=== PATIENT | female | born 1940 | race Caucasian/White ===

== ENCOUNTER 2016-02-07 14:23 | Inpatient (IN) ==
--- NOTE | 2016-02-07 14:36 | Emergency Department Note ---
Disposition Clinical Impression: Acute exacerbation of chronic obstructive airways disease Congestive heart failure Qualifiers: Congestive heart failure type: unspecified congestive heart failure type Congestive heart failure chronicity: acute Qualified Code(s): I50.9 - Heart failure, unspecified Disposition: Admitted As Inpatient Condition: Fair Referrals: Valerie Hayes MD [Primary Care Provider] - Forms: ED Satisfaction Letter Time of Disposition: 16:53 SOB HPI - General Chief Complaint: ED Shortness of Breath/Dyspnea Stated Complaint: SOB Time Seen by Provider: 02/07/16 14:31 Source: patient, EMS Mode of arrival: EMS Limitations: physical limitation Nursing Notes Reviewed: Yes Vital Signs Reviewed: Yes - History of Present Illness 75-year-old with a history of COPD comes in with increasing shortness of breath and cough. She saw her family doctor who did not want to put her on antibiotics she cannot take steroids. Pt Subjective Complaint: shortness of breath Onset (ago): hour(s) Context: recent illness Severity: moderate Consistency/Duration: constant Improves with: nothing Worsens with: exertion Known history of: COPD Associated symptoms: Reports: cough, wheezing, sputum production Treatment prior to arrival: oxygen, bronchodilator Cough present: No Cough Description: Involuntary Cough Frequency: Intermittent - Related Data Home Medications Medication Instructions Recorded Confirmed Aspirin Enteric Coated [Aspirin EC] 81 mg PO DAILY 01/11/15 09/12/15 Calcium Carbonate/Vitamin D3 1 each PO DAILY 01/11/15 09/12/15 [Calcium 600-Vit D3 800 Tablet] Clopidogrel [Plavix] 75 mg PO DAILY 01/11/15 09/12/15 Furosemide [Lasix] 20 mg PO QAM 01/11/15 09/12/15 HydrALAZINE 50 mg PO BID 01/11/15 09/12/15 Levalbuterol Neb [Xopenex Neb] 1.25 mg IH Q4HR 01/11/15 09/12/15 Loratadine [Claritin] 10 mg PO DAILY 01/11/15 09/12/15 Losartan [Cozaar] 50 mg PO DAILY 01/11/15 09/12/15 Multivitamin [Multi-Day Vitamins] 1 each PO DAILY 01/11/15 09/12/15 Nitroglycerin [Nitrostat] 0.4 mg SL AD PRN 01/11/15 09/12/15 Pravastatin Sodium [Pravachol] 40 mg PO DAILY 01/11/15 09/12/15 Sotalol [Betapace] 80 mg PO Q12HR 01/11/15 09/12/15 Fluticasone Propionate Nasal 50 mcg NS DAILY 09/12/15 09/12/15 [Flonase] LORazepam [Ativan] 0.5 mg PO BID 09/12/15 09/12/15 Metoprolol XL (24 HR) Succ [Toprol 50 mg PO DAILY 09/12/15 09/12/15 Xl] Oxygen 2 l NS AD 09/12/15 09/12/15 Previous Rx's Medication Instructions Recorded GuaiFENesin ER [Mucinex] 600 mg PO BID PRN #20 tbbp.12hr 09/15/15 HYDROcodone/Acet 5/325 mg [[place] 1 tab PO Q6HR PRN #15 tablet 12/09/15 5-325 mg] Cefdinir [Omnicef] 300 mg PO BID 10 Days 02/05/16 Allergies Allergy/AdvReac Type Severity Reaction Status Date / Time ASIM Inhibitors Allergy See Verified 09/12/15 18:41 Comments budesonide [From Symbicort] Allergy Swelling Verified 09/12/15 18:41 of Lip/Tongue/Throat Cyclobenzaprine Allergy Anaphylaxis Verified 09/12/15 18:41 [From Flexeril] ethacrynic acid Allergy See Verified 09/12/15 18:41 [From Edecrin] Comments lisinopril [From Zestoretic] Allergy See Verified 09/12/15 18:41 Comments moxifloxacin [From Avelox] Allergy See Verified 09/12/15 18:41 Comments amlodipine [From Norvasc] AdvReac Diarrhea Verified 09/12/15 18:41 aspirin AdvReac See Verified 09/12/15 18:41 Comments azithromycin [From Zithromax] AdvReac Diarrhea Verified 09/12/15 18:41 citalopram [From Celexa] AdvReac See Verified 09/12/15 18:41 Comments fluticasone AdvReac Confusion Verified 09/12/15 18:41 [From Advair Diskus] Formoterol [From Dulera] AdvReac Muscle Pain Verified 09/12/15 18:41 gabapentin [From Neurontin] AdvReac Headache Verified 09/12/15 18:41 hydrochlorothiazide AdvReac See Verified 09/12/15 18:41 Comments levofloxacin [From Levaquin] AdvReac See Verified 09/12/15 18:41 Comments losartan [Losartan] AdvReac Diarrhea Verified 09/12/15 18:41 mometasone furoate AdvReac Muscle Pain Verified 09/12/15 18:41 [From Dulera] ofloxacin AdvReac Headache Verified 09/12/15 18:41 prednisone AdvReac See Verified 09/12/15 18:41 Comments rofecoxib [From Vioxx] AdvReac Nausea Verified 09/12/15 18:41 salmeterol AdvReac Confusion Verified 09/12/15 18:41 [From Advair Diskus] Serotonin 5HT-3 Antagonists AdvReac See Verified 09/12/15 18:41 Comments Sulfa (Sulfonamide AdvReac Nausea Verified 09/12/15 18:41 Antibiotics) tiotropium AdvReac See Verified 09/12/15 18:41 [From Spiriva with Comments HandiHaler] tramadol AdvReac See Verified 09/12/15 18:41 Comments Constitutional: Denies: fever, chills, weakness, weight change Eyes: Denies: eye pain, eye discharge, vision change ENT ED: Denies: ear pain, throat pain, dental pain, hearing loss, epistaxis, congestion, dysphagia Cardiovascular: Denies: chest pain, palpitations, dyspnea on exertion, edema, syncope Respiratory: Reports: cough. Denies: dyspnea, wheezes, hemoptysis, stridor Gastrointestinal: Denies: abdominal pain, nausea, vomiting, diarrhea, constipation, hematemesis, melena, hematochezia Genitourinary: Denies: dysuria, frequency, hematuria, discharge Musculoskeletal: Denies: back pain, neck pain, arthralgia, myalgia Integumentary: Denies: rash, abrasion, lesions Neurological: Denies: headache, weakness, numbness, paresthesias, confusion, abnormal gait, vertigo Psychiatric: Denies: anxiety, depression, suicidal thoughts, homicidal thoughts , auditory hallucinations, visual hallucinations Endocrine: Denies: fatigue Hematological/Lymphatic: Denies: easy bleeding, easy bruising Allergic/Immunologic: Denies: facial swelling, urticaria Past Medical History - Past Medical History Medical history: Reports: CHF, COPD, diabetes, hyperlipidemia, hypertension, myocardial infarction Surgical history: Reports: angioplasty/stent Psychiatric history: Reports: anxiety GEOPHYSICS SCIENTIST history: Reports: no GEOPHYSICS SCIENTIST history - Social History Smoking Status: Former smoker Smokeless Tobacco Status: No Alcohol use: Reports: none Drug use: Reports: none Physical Exam - General Limitations: physical limitation General appearance: alert, in no apparent distress - Head Head exam: atraumatic, normocephalic, normal inspection - Eye Eye exam: Present: normal appearance, PERRL, EOMI - ENT ENT exam: normal exam, normal oropharynx, mucous membranes moist - Neck Neck exam: Present: normal inspection, full ROM, trachea midline - Chest Chest inspection: Present: normal inspection, symmetric chest wall rise - Respiratory Respiratory exam: Present: respiratory distress, wheezes, accessory muscle use, prolonged expiratory phase - Cardiovascular Cardiovascular exam: Present: regular rate, normal rhythm, normal heart sounds - Abdominal Exam Abdominal exam: Present: soft, Non-Tender. Absent: tenderness, distention, guarding, rebound, rigidity - Extremities Exam Extremities exam: Present: normal inspection, full ROM. Absent: tenderness, pedal edema - Expanded Lower Extremity Exam Neurovascular/Tendon exam: Absent: motor deficit, sensory deficit, tendon deficit Gait: observed and normal - Back Exam Back exam: Present: normal inspection, full ROM. Absent: tenderness - Neurological Exam Neurological exam: Present: alert, oriented X3 - Psychiatric Psychiatric exam: Present: normal affect, normal mood - Skin Skin exam: Present: warm, dry, intact, normal color Course - Reevaluation(s) Reevaluation #1: She comes in with increasing shortness of breath and wheezing. Patient does have a history of COPD. She denies fever. Chest x-ray was read as possible pneumonitis however her BNP is elevated and it does look congested. Time: 16:53 - Consultations Consultation #1: Discussed with , admit. Time: 16:53 Vital Signs Temperature 97.5 F L 02/07/16 14:31 Pulse Rate 76 02/07/16 14:31 Respiratory Rate 15 02/07/16 14:31 Blood Pressure 164/73 02/07/16 14:31 O2 Sat by Pulse Oximetry 96 02/07/16 14:31 Temperature 97.5 F L 02/07/16 14:31 Pulse Rate 77 02/07/16 14:34 Respiratory Rate 14 02/07/16 14:34 Blood Pressure 164/73 02/07/16 14:34 O2 Sat by Pulse Oximetry 97 02/07/16 14:34 Oxygen Delivery Oxygen Delivery Nasal Cannula Shortness of Breath/Dyspnea - Lab Data Lab results reviewed: Yes I reviewed the patient's lab results. Result diagrams: 02/07/16 14:49 02/07/16 14:49 Lab Results 02/07/16 02/07/16 02/07/16 Range/Units 14:49 14:49 14:49 WBC 7.1 (4.3-11.1) K/mcL RBC 3.32 L (3.82-4.97) M/mcL Hgb 10.7 L (11.5-15.4) g/dL Hct 31.7 L (35.3-44.9) % MCV 95.5 (83.0-100.0) fL MCH 32.2 (28.0-33.3) pg MCHC 33.8 (31.6-35.5) g/dL RDW 11.7 (11.5-14.5) % Plt Count 165 (140-400) K/mcL MPV 9.7 (9.4-12.4) fL Immature Gran % 0.6 (0-4) % Seg Neutrophils % 81.9 % Lymphocytes % 9.6 % Monocytes % 7.7 % Eosinophils % 0.1 % Basophils % 0.1 % Neutrophils # 5.8 (1.6-8.9) K/mcL Lymphocytes # 0.7 (0.6-4.6) K/mcL Monocytes # 0.6 (0.0-1.3) K/mcL Eosinophils # 0.0 (0.0-0.6) K/mcL Basophils # 0.0 (0.0-0.2) K/mcL Sodium 123 L D (136-145) mEq/L Potassium 4.5 (3.5-4.5) mEq/L Chloride 86 L (98-109) mEq/L Carbon Dioxide 31 H (19-29) mEq/L BUN 13 (7-20) mg/dL Creatinine 0.63 (0.57-1.11) mg/dL Est GFR ( Amer) > 60 (> 60) Est GFR (Non-Af Amer) > 60 (> 60) BUN/Creatinine Ratio 21 (6-26) Glucose 143 H (70-99) mg/dL Calculated Osmolality 259 L (280-300) Calcium 9.4 (8.6-10.8) mg/dL Troponin I 0.02 (0-0.03) ng/mL B-Natriuretic Peptide (0-100) pg/mL 02/07/16 Range/Units 14:49 WBC (4.3-11.1) K/mcL RBC (3.82-4.97) M/mcL Hgb (11.5-15.4) g/dL Hct (35.3-44.9) % MCV (83.0-100.0) fL MCH (28.0-33.3) pg MCHC (31.6-35.5) g/dL RDW (11.5-14.5) % Plt Count (140-400) K/mcL MPV (9.4-12.4) fL Immature Gran % (0-4) % Seg Neutrophils % % Lymphocytes % % Monocytes % % Eosinophils % % Basophils % % Neutrophils # (1.6-8.9) K/mcL Lymphocytes # (0.6-4.6) K/mcL Monocytes # (0.0-1.3) K/mcL Eosinophils # (0.0-0.6) K/mcL Basophils # (0.0-0.2) K/mcL Sodium (136-145) mEq/L Potassium (3.5-4.5) mEq/L Chloride (98-109) mEq/L Carbon Dioxide (19-29) mEq/L BUN (7-20) mg/dL Creatinine (0.57-1.11) mg/dL Est GFR ( Amer) (> 60) Est GFR (Non-Af Amer) (> 60) BUN/Creatinine Ratio (6-26) Glucose (70-99) mg/dL Calculated Osmolality (280-300) Calcium (8.6-10.8) mg/dL Troponin I (0-0.03) ng/mL B-Natriuretic Peptide 1323 H (0-100) pg/mL - Radiology Data Radiology results reviewed: Yes I reviewed the patient's radiology results. Chest X-Ray 02/07/16 14:32 IMPRESSION: Mild progressive increase in the perihilar markings bilaterally suggesting a pneumonitis. D/ / Javan Card MD / Javan Card MD Interpreting Provider: Javan Card MD - EKG Data EKG attestation: Yes I reviewed and interpreted this EKG. EKG shows normal: Reports: sinus rhythm Rate: Reports: normal Rhythm: Reports: NSR [place]/QRS: Reports: IVCD When compared to previous EKG there are: no significant changes (02/05/2016) Interpretation: Reports: no acute changes
[2016-02-07 15:03] LABS: Basophils % 0.1 %; Eosinophils % 0.1 %; Hematocrit 31.7 % (35.3-44.9); Hemoglobin 10.7 g/dL (11.5-15.4); Immature Granulocytes % 0.6 % (0-4); Lymphocytes # 0.7 K/mcL (0.6-4.6); Lymphocytes % 9.6 %; Mean Corpuscular HGB Conc 33.8 g/dL (31.6-35.5); Mean Corpuscular Hemoglobin 32.2 pg (28.0-33.3); Mean Corpuscular Volume 95.5 fL (83.0-100.0); Mean Platelet Volume 9.7 fL (9.4-12.4); Monocytes # 0.6 K/mcL (0.0-1.3); Monocytes % 7.7 %; Neutrophils # 5.8 K/mcL (1.6-8.9); Platelet Count 165 K/mcL (140-400); Red Blood Count 3.32 M/mcL (3.82-4.97); Red Cell Distribution Width 11.7 % (11.5-14.5); Segmented Neutrophils % 81.9 %
[2016-02-07 15:12] LABS: BUN/Creatinine Ratio 21 (6-26); Blood Urea Nitrogen 13 mg/dL (7-20); Calcium 9.4 mg/dL (8.6-10.8); Carbon Dioxide 31 mEq/L (19-29); Chloride 86 mEq/L (98-109); Glucose 143 mg/dL (70-99); Osmolality,Calculated 259 (280-300); Potassium 4.5 mEq/L (3.5-4.5); Sodium 123 mEq/L (136-145); eGFR For African Americans > 60 (> 60); eGFR For Non-African Americans > 60 (> 60)
[2016-02-07] MEDS ORDERED: Furosemide 40 MG/4 ML VIAL IVP ONE (16:28)
[2016-02-07] MEDS ORDERED: Naloxone 0.4 MG/ML INJ IVP PRN (17:45)
[2016-02-07] MEDS ORDERED: Ondansetron ODT 4 MG TAB.RAPDIS SL PRN (17:45)
[2016-02-07] MEDS ORDERED: D5% in Water 1,000 ML IV PRN (17:49)
[2016-02-07] MEDS ORDERED: *HR* Dextrose 50 % in Water (Syg) 50 ML SYRINGE IVP PRN (17:49)
[2016-02-07] MEDS ORDERED: Dextrose Gel 15 GM PO PRN ×2 (17:49)
--- NOTE | 2016-02-07 18:08 | Internal Med History&Physical ---
Date of Encounter: 02/07/16 Time of Encounter: 18:02 Assessment and Plan (1) Acute on chronic congestive heart failure Current visit: Yes Status: Acute Patient presented with worsening shortness of breath and cough. BNP 1323 and sodium of 123 suggesting fluid overload No echocardiogram on review of recent chart Lasix 40mg IVP daily titrate O2 for O2 sat > 92% Qualifiers: Congestive heart failure type: unspecified congestive heart failure type Qualified Code(s): I50.9 - Heart failure, unspecified (2) Acute exacerbation of chronic obstructive airways disease Current visit: Yes Status: Acute Patient presented with worsening SOB and productive cough. She was prescribed omnicef in ED 2 days ago for similar symptoms. She reports allergy to steroids and albuterol, but takes Xopenex (levalbuterol) Q4hr, atrovent nebulizer and formoterol. Will continue her Xopenex, formoterol (use home meds) and atrovent nebulizers. Ceftriaxone initiated in ED. Titrate O2 to O2 sat > 92% (3) Hypertension Current visit: No Status: Chronic continue home doses of metoprolol and losartan Qualifiers: Hypertension type: essential hypertension Qualified Code(s): I10 - Essential (primary) hypertension (4) Hyponatremia Current visit: No Status: Chronic Lasix 40mg BID fluid restriction to 1500mL daily (5) Type 2 diabetes mellitus Current visit: Yes Status: Acute Diet controlled at home. Diabetic diet. blood glucose ACHS correction dose sliding scale insulin ordered hypoglycemic protocol ordered. Qualifiers: Diabetes mellitus complication status: with circulatory complication Diabetes mellitus complication detail: with other circulatory complications Diabetes mellitus buttermaker continuous churn insulin use: without mcfp use Qualified Code( s): E11.59 - Type 2 diabetes mellitus with other circulatory complications (6) DVT prophylaxis Current visit: No Status: Acute anti-embolic stockings ambulate with assistance and up to chair BID 5,000u of heparin SQ bid Internal Medicine - H&P: HPI Admitted From: Home Plans for Post Hospital Care: Home History of present illness: Ms. Jurado is a 75 year old female with history of COPD, CHF, HTN, ID, type 2 DM, who presented to the ED with shortness of breath and productive cough. She reports this has been going on for a week and worsening with cough productive of green and yellow sputum. She came to the ED 2 days ago with similar complaints and was given an antbiotic prescription, and reports she only started taking it last evening, and her SOB is worse. She has pain with coughing as well as a headache on and off. She reports chills and hot flashes, but denies fever, body aches, nausea, vomiting, abdominal pain. She has a history of COPD and wears 2L oxygen [place] at home. Her work up in the ED was significant for hyponatremia with sodium of 123, BNP of 1323. CXR showed mild progressive increase in the perihilar markings bilaterally suggesting pneumonitis. On exam, she was alert and oriented, appeared comfortable, satting 96% on 2L NC. Lungs with fine expiratory crackles bilaterally, Heart had regular rate and rhythm. Past Med Surg Social Fam HX - Past Medical History Medical history: CHF, COPD, diabetes, hyperlipidemia, hypertension, myocardial infarction Psychiatric history: anxiety - Past Surgical History Surgical History: angioplasty/stent (right external iliac), appendectomy, hysterectomy - Social History Smoking Status: Former smoker Smokeless Tobacco Status: No Alcohol use: none Drug use: none - Family History Mother Living Status: Cause of : CAD Hx Family Cardiac Disorders: Yes Hx Family Respiratory Disorders: Yes Father Cause of : meningitis Internal Medicine - H&P: Meds Aspirin Enteric Coated [Aspirin EC] 81 mg PO DAILY 01/11/15 [History] Calcium Carbonate/Vitamin D3 [Calcium 600-Vit D3 800 Tablet] 1 each PO DAILY 02/25 [History] Clopidogrel [Plavix] 75 mg PO DAILY 01/11/15 [History] Furosemide [Lasix] 20 mg PO QAM 01/11/15 [History] HydrALAZINE 50 mg PO BID 01/11/15 [History] Levalbuterol Neb [Xopenex Neb] 1.25 mg IH Q4HR 01/11/15 [History] Loratadine [Claritin] 10 mg PO DAILY 01/11/15 [History] Losartan [Cozaar] 50 mg PO DAILY 01/11/15 [History] Multivitamin [Multi-Day Vitamins] 1 each PO DAILY 01/11/15 [History] Nitroglycerin [Nitrostat] 0.4 mg SL AD PRN 01/11/15 [History] Pravastatin Sodium [Pravachol] 40 mg PO DAILY 01/11/15 [History] Sotalol [Betapace] 80 mg PO Q12HR 01/11/15 [History] Fluticasone Propionate Nasal [Flonase] 50 mcg NS DAILY 09/12/15 [History] LORazepam [Ativan] 0.5 mg PO BID 09/12/15 [History] Metoprolol XL (24 HR) Succ [Toprol Xl] 50 mg PO DAILY 09/12/15 [History] Oxygen 2 l NS CONT 09/12/15 [History] GuaiFENesin ER [Mucinex] 600 mg PO BID PRN #20 tbbp.12hr 09/15/15 [Rx] HYDROcodone/Acet 5/325 mg [[place] 5-325 mg] 1 tab PO Q6HR PRN #15 tablet [Rx] Cefdinir [Omnicef] 300 mg PO BID 10 Days 02/05/16 [Rx] Formoterol Fumarate [Perforomist] 20 mcg IH Q4H 02/07/16 [History] Ipratropium Neb [Atrovent Neb] 0.5 mg IH Q4H 02/07/16 [History] Tizanidine HCl [Tizanidine HCl] 2 mg PO TID PRN 02/07/16 [History] Allergies ASIM Inhibitors Allergy (Verified 09/12/15 18:41) See Comments budesonide [From Symbicort] Allergy (Verified 09/12/15 18:41) Swelling of Lip/Tongue/Throat Cyclobenzaprine [From Flexeril] Allergy (Verified 09/12/15 18:41) Anaphylaxis ethacrynic acid [From Edecrin] Allergy (Verified 09/12/15 18:41) See Comments lisinopril [From Zestoretic] Allergy (Verified 09/12/15 18:41) See Comments moxifloxacin [From Avelox] Allergy (Verified 09/12/15 18:41) See Comments amlodipine [From Norvasc] Adverse Reaction (Verified 09/12/15 18:41) Diarrhea aspirin Adverse Reaction (Verified 09/12/15 18:41) See Comments azithromycin [From Zithromax] Adverse Reaction (Verified 09/12/15 18:41) Diarrhea citalopram [From Celexa] Adverse Reaction (Verified 09/12/15 18:41) See Comments fluticasone [From Advair Diskus] Adverse Reaction (Verified 09/12/15 18:41) Confusion Formoterol [From Dulera] Adverse Reaction (Verified 09/12/15 18:41) Muscle Pain gabapentin [From Neurontin] Adverse Reaction (Verified 09/12/15 18:41) Headache hydrochlorothiazide Adverse Reaction (Verified 09/12/15 18:41) See Comments levofloxacin [From Levaquin] Adverse Reaction (Verified 09/12/15 18:41) See Comments losartan [Losartan] Adverse Reaction (Verified 09/12/15 18:41) Diarrhea mometasone furoate [From Dulera] Adverse Reaction (Verified 09/12/15 18:41) Muscle Pain ofloxacin Adverse Reaction (Verified 09/12/15 18:41) Headache prednisone Adverse Reaction (Verified 09/12/15 18:41) See Comments rofecoxib [From Vioxx] Adverse Reaction (Verified 09/12/15 18:41) Nausea salmeterol [From Advair Diskus] Adverse Reaction (Verified 09/12/15 18:41) Confusion Serotonin 5HT-3 Antagonists Adverse Reaction (Verified 09/12/15 18:41) See Comments Sulfa (Sulfonamide Antibiotics) Adverse Reaction (Verified 09/12/15 18:41) Nausea tiotropium [From Spiriva with HandiHaler] Adverse Reaction (Verified 09/12/15 18 :41) See Comments tramadol Adverse Reaction (Verified 09/12/15 18:41) See Comments All Systems PM: A 10-system review of systems was performed and is negative for pertinent findings except as documented above in the HPI. - Constitutional Constitutional: chills, no fever(s), no night sweats - EENT Eyes: no change in vision, no discharge, no pain, no photophobia - Cardiovascular Cardiovascular ROS IM: dyspnea, no chest pain, no diaphoresis, no lightheadedness, no palpitations, no syncope - Respiratory Respiratory: cough, dyspnea, excessive phlegm production, change in phlegm color , pain with cough, no wheezing - Gastrointestinal Gastrointestinal: no abdominal pain, no diarrhea, no hematemesis, no hematochezia, no melena, no nausea, no vomiting - Genitourinary Genitourinary: no change in urinary stream, no dysuria, no flank pain, no hematuria - Musculoskeletal Musculoskeletal ROS IM: no numbness, no tingling - Integumentary Integumentary IM: no rash, no unusual bruising - Neurological Neurological ROS: no confusion, no convulsions, no focal weakness, no numbness, no tingling, no tremor(s) - Hematologic/Lymphatic Hematologic/Lymphatic: no easy bruising - Constitutional Vitals: Temp Pulse Resp BP Pulse Ox 97.5 F L 81 18 167/83 95 02/07/16 14:31 02/07/16 17:45 02/07/16 17:45 02/07/16 17:45 02/07/16 17:45 General appearance: Present: A&O X 3, no acute distress - Head Head exam: Present: atraumatic, normocephalic - Eye Eye exam: Present: PERRL, conjuntiva pink, sclera anicteric Pupils: Present: PERRL - Neck Neck exam general surgery: Present: supple, trachea midline. Absent: lymphadenopathy - Respiratory Respiratory exam: Present: rhonchi, wheezes - Cardiovascular Cardiovascular exam: Present: RRR, +S1, +S2. Absent: diastolic murmur, gallop, rubs, systolic murmur - GI/Abdominal GI/Abdominal exam: Present: normal bowel sounds, soft, no peritoneal signs. Absent: distended, tenderness - Extremities Exam Extremities exam: Present: warm, radial pulses palpable and symetrical. Absent : calf tenderness, cyanotic, pedal edema - Neurological Exam Neurological exam: Present: CN II-XII intact, oriented X3, no focal deficits. Absent: pronater drift, facial droop, speech deficit - Skin Skin exam: Present: dry, intact Internal Med - H&P Results - Labs CBC & Chem 7: 02/07/16 14:49 02/07/16 14:49
[2016-02-07] MEDS ORDERED: tiZANidine 4 MG TABLET PO PRN (18:32)
[2016-02-07] MEDS ORDERED: (Formoterol Fumarate [Perforomist] 20 MCG) IH SCH (18:45)
[2016-02-07] MEDS ORDERED: Levalbuterol Neb 1.25 MG/3 ML IH SCH (20:00)
[2016-02-07] MEDS: Insulin LISPRO 300 UNITS/3 ML VIAL SQ SCH (20:05)
[2016-02-07] MEDS: Ipratropium Neb 0.5 MG NEBULIZER IH SCH (20:31)
[2016-02-07] MEDS ORDERED: Furosemide 40 MG/4 ML VIAL IVP SCH (21:00)
[2016-02-07] MEDS: hydrALAZINE 25 MG TABLET PO SCH (22:25)
[2016-02-07] MEDS: *HR* LORazepam 0.5 MG TABLET PO SCH (22:26)
[2016-02-08] MEDS: Insulin LISPRO 300 UNITS/3 ML VIAL SQ SCH ×5 (00:24→22:20)
[2016-02-08] MEDS: Ipratropium Neb 0.5 MG NEBULIZER IH SCH ×7 (00:35→22:52)
[2016-02-08] MEDS: Levalbuterol Neb 1.25 MG/3 ML IH SCH ×5 (00:35→22:26)
[2016-02-08] MEDS: (Formoterol Fumarate [Perforomist] 20 MCG) IH SCH ×7 (00:37→22:53)
[2016-02-08 05:07] LABS: Basophils % 0.2 %; Hematocrit 32.7 % (35.3-44.9); Hemoglobin 11.1 g/dL (11.5-15.4); Immature Granulocytes % 0.5 % (0-4); Lymphocytes # 0.9 K/mcL (0.6-4.6); Lymphocytes % 14.5 %; Mean Corpuscular HGB Conc 33.9 g/dL (31.6-35.5); Mean Corpuscular Hemoglobin 32.4 pg (28.0-33.3); Mean Corpuscular Volume 95.3 fL (83.0-100.0); Mean Platelet Volume 9.9 fL (9.4-12.4); Monocytes # 0.7 K/mcL (0.0-1.3); Monocytes % 11.5 %; Neutrophils # 4.7 K/mcL (1.6-8.9); Platelet Count 184 K/mcL (140-400); Red Blood Count 3.43 M/mcL (3.82-4.97); Red Cell Distribution Width 11.4 % (11.5-14.5); Segmented Neutrophils % 73.3 %
[2016-02-08] MEDS: *HR* Heparin 5,000 UNIT/ML VIAL SQ SCH ×2 (05:36→16:48)
[2016-02-08 05:46] LABS: BUN/Creatinine Ratio 25 (6-26); Blood Urea Nitrogen 16 mg/dL (7-20); Calcium 9.2 mg/dL (8.6-10.8); Carbon Dioxide 34 mEq/L (19-29); Chloride 81 mEq/L (98-109); Glucose 123 mg/dL (70-99); Osmolality,Calculated 259 (280-300); Potassium 3.9 mEq/L (3.5-4.5); Sodium 123 mEq/L (136-145); eGFR For African Americans > 60 (> 60); eGFR For Non-African Americans > 60 (> 60)
[2016-02-08] MEDS: Fluticasone Propionate Nasal 50 MCG/SPRAY BOTTLE NS SCH (08:44)
[2016-02-08] MEDS: *HR* LORazepam 0.5 MG TABLET PO SCH ×2 (08:45→22:13)
[2016-02-08] MEDS: Aspirin Enteric Coated 81 MG Tablet PO SCH (08:45)
[2016-02-08] MEDS: Metoprolol XL (24 HR) Succ 50 MG TAB.ER.24H PO SCH (08:45)
[2016-02-08] MEDS: Loratadine 10 MG TABLET PO SCH (08:45)
[2016-02-08] MEDS: hydrALAZINE 25 MG TABLET PO SCH ×2 (08:46→22:13)
[2016-02-08] MEDS: Furosemide 40 MG/4 ML VIAL IVP SCH (08:46)
--- NOTE | 2016-02-08 10:04 | Electrocardiograph Report ---
[facility] Test Date: 2016-02-07 Pat Name: Linda Jurado Department: 103 Room: 3B53 Gender: F Auto Mechanic: : 1940 Requested By: Hernan Carrasco Order Number: [id number] Reading MD: Larry Abdalla MD Measurements Intervals [place] Rate: 76 P: 73 TN: 160 QRS: 2 QRSD: 145 T: -58 QT: 426 QTc: 456 Interpretive Statements SINUS RHYTHM INTRAVENTRICULAR CONDUCTION DELAY ANTERIOR CA, PROBABLY OLD POSSIBLE LATERAL ISCHEMIA Electronically Signed On 02-08-16 10:03:31 EST by Larry Abdalla MD
--- NOTE | 2016-02-08 16:38 | Internal Med Progress Note ---
Date of Encounter: 02/08/16 Time of Encounter: 10:00 - Assessment and plan (1) Acute on chronic congestive heart failure Current Visit: Yes Status: Acute Assessment and plan: 75 y/o F hx of COPD, CHF, HTN, CAD, DMII, chronic hyponatremia presents with 1 week of progressive sob, productive cough with green sputum. She was found to have elevated BNP of 1300 compared to 300 which is her baseline. CXR shows pulmonary venous congestion. She is receiving IV lasix and is put on a fluid restricted diabetic diet. Qualifiers: Congestive heart failure type: unspecified congestive heart failure type Qualified Code(s): I50.9 - Heart failure, unspecified (2) Acute exacerbation of chronic obstructive airways disease Current Visit: Yes Status: Ruled-out Assessment and plan: Patient is on continuous 2L O2 at home. She had worsening dsypnea and productive sputum for the last week. Her symptoms seem to be related more to her CHF than a COPD exacerbation. We will continue her atorvent, xopenex and reevaluate tomorrow. (3) Type 2 diabetes mellitus Current Visit: Yes Status: Acute Assessment and plan: Last HgA1c was 6.4 in 2014. Will repeat. She is staying hyperglycemic on Q6H lowdose sliding scale. Will sttart levamir 10units QHS. Diabetic diet. Qualifiers: Diabetes mellitus complication status: with circulatory complication Diabetes mellitus complication detail: with other circulatory complications Diabetes mellitus long term acute care registered nurse insulin use: without custodial use Qualified Code( s): E11.59 - Type 2 diabetes mellitus with other circulatory complications (4) DVT prophylaxis Current Visit: No Status: Acute Assessment and plan: Heparin SQ. (5) CAD (coronary artery disease) Current Visit: No Status: Chronic Assessment and plan: Denies CP. Continue statin, metoprolol, plavix. Qualifiers: Coronary Disease-Associated Artery/Lesion type: [place] artery [place] vs. transplanted heart: [place] heart Associated angina: without angina Qualified Code(s): I25.10 - Atherosclerotic heart disease of [place] coronary artery without angina pectoris (6) Hyponatremia Current Visit: No Status: Chronic Assessment and plan: Acute on chronic hyponatremia. Unknown etiology. PE does now show pedal edema. Patient appears to have euvolemic hyponatremia. Obtaining TSH, serum osmolality , urine osmolality, urine sodium. Patient's sodium has stayed stable in the last 24 hours. SHe is not getting any fluids 2nd to acute CHF exacerbation. - Subjective Interval history: Patient reports continued sob, productive cough. She reports mild improvement from last night. She denies CP, palpitations, abdominal pain, fever, chills, nausea, lower extremity swelling. - Constitutional Vitals: Temp Pulse Resp BP Pulse Ox 97.7 F 69 15 155/72 98 02/08/16 14:47 02/08/16 14:47 02/08/16 14:47 02/08/16 14:47 02/08/16 14:47 General appearance: Present: A&O X 3, no acute distress - Respiratory Respiratory exam: Present: decreased breath sounds, rales, wheezes. Absent: accessory muscle use, rhonchi - GI/Abdominal GI/Abdominal exam: Present: normal bowel sounds, soft. Absent: distended, tenderness - Extremities Exam Extremities exam: Present: normal capillary refill, normal inspection, radial pulses palpable and symetrical. Absent: calf tenderness, pedal edema Internal Medicine: Result - Labs CBC & Chem 7: 02/08/16 03:39 02/08/16 03:39 Labs: Short CBC 02/08/16 Range/Units 03:39 WBC 6.4 (4.3-11.1) K/mcL Hgb 11.1 L (11.5-15.4) g/dL Hct 32.7 L (35.3-44.9) % Plt Count 184 (140-400) K/mcL Neutrophils # 4.7 (1.6-8.9) K/mcL BMP 02/08/16 03:39 Sodium 123 L Potassium 3.9 Chloride 81 L Carbon Dioxide 34 H BUN 16 Creatinine 0.65 Glucose 123 H Calcium 9.2 Consult Discharge Plan - Plan Referrals: Valerie Hayes MD [Primary Care Provider] - 02/16/16 3:15 pm (Norma with Dr Burt )
--- NOTE | 2016-02-08 16:54 | Event Note ---
Date of Encounter: 02/08/16 Time of Encounter: 13:15 I examined this patient and my medical decision-making was reviewed with Dr. Son. I agree with the documented findings, disposition and treatment plan as described except to the extent set forth below. 75 yo CF admitted for CHF exacerbation. Reports doing well today with diuresis. Exam reveals CTAB. Labs reviewed. 1. Acute on chronic CHF - Diuresis 2. Mild COPD exacerbation 3. HTN 4. Hyponatremia - Likely hypervolemic due to CHF exacerbation. Check urine studies. Diuresis and fluid restriction. 5. DM-2 High risk due to acute CHF exacerbation. Admit to inpatient status. Expect the patient to stay at least 2 midnights. Expected DC dispo is to home. MELE Silva
[2016-02-08] MEDS: Acetaminophen 325 MG TABLET PO PRN (17:17)
[2016-02-08 18:35] LABS: Hemoglobin A1C 5.9 %
[2016-02-08] MEDS: Saline Nasal Spray 44 ML BOTTLE NS PRN (22:15)
[2016-02-08] MEDS: Insulin DETEMIR 100 UNIT/ML X5UNITS SQ SCH (22:17)
[2016-02-09 03:50] LABS: Basophils % 0.1 %; Eosinophils # 0.1 K/mcL (0.0-0.6); Eosinophils % 0.7 %; Hematocrit 31.3 % (35.3-44.9); Immature Granulocytes % 0.7 % (0-4); Lymphocytes # 1.2 K/mcL (0.6-4.6); Lymphocytes % 15.7 %; Mean Corpuscular HGB Conc 35.1 g/dL (31.6-35.5); Mean Corpuscular Hemoglobin 32.9 pg (28.0-33.3); Mean Corpuscular Volume 93.7 fL (83.0-100.0); Mean Platelet Volume 9.3 fL (9.4-12.4); Monocytes # 0.9 K/mcL (0.0-1.3); Monocytes % 12.4 %; Neutrophils # 5.3 K/mcL (1.6-8.9); Platelet Count 176 K/mcL (140-400); Red Blood Count 3.34 M/mcL (3.82-4.97); Red Cell Distribution Width 11.4 % (11.5-14.5); Segmented Neutrophils % 70.4 %
[2016-02-09] MEDS: (Formoterol Fumarate [Perforomist] 20 MCG) IH SCH ×6 (03:56→23:21)
[2016-02-09 03:59] LABS: Ionized Calcium 1.09 mmol/L (1.15-1.35)
[2016-02-09 04:08] LABS: BUN/Creatinine Ratio 37 (6-26); Blood Urea Nitrogen 23 mg/dL (7-20); Calcium 8.9 mg/dL (8.6-10.8); Chloride 84 mEq/L (98-109); Glucose 56 mg/dL (70-99); Magnesium 1.9 mg/dL (1.6-2.6); Osmolality,Calculated 261 (280-300); Potassium 3.6 mEq/L (3.5-4.5); Sodium 125 mEq/L (136-145); eGFR For African Americans > 60 (> 60); eGFR For Non-African Americans > 60 (> 60)
[2016-02-09 04:10] LABS: Carbon Dioxide 40 mEq/L (19-29)
[2016-02-09 04:13] LABS: Chol/HDL Ratio 2.9 (0-4.9)
[2016-02-09] MEDS: Insulin LISPRO 300 UNITS/3 ML VIAL SQ SCH ×3 (05:44→18:57)
[2016-02-09] MEDS: *HR* Heparin 5,000 UNIT/ML VIAL SQ SCH ×2 (05:51→18:46)
[2016-02-09] MEDS: Ipratropium Neb 0.5 MG NEBULIZER IH SCH ×8 (05:58→23:21)
[2016-02-09] MEDS: Levalbuterol Neb 1.25 MG/3 ML IH SCH ×5 (07:46→20:23)
[2016-02-09] MEDS: *HR* LORazepam 0.5 MG TABLET PO SCH ×2 (09:41→21:01)
[2016-02-09] MEDS: Metoprolol XL (24 HR) Succ 50 MG TAB.ER.24H PO SCH (09:41)
[2016-02-09] MEDS: Aspirin Enteric Coated 81 MG Tablet PO SCH (09:41)
[2016-02-09] MEDS: Loratadine 10 MG TABLET PO SCH (09:42)
[2016-02-09] MEDS: Furosemide 40 MG/4 ML VIAL IVP SCH (09:42)
[2016-02-09] MEDS: hydrALAZINE 25 MG TABLET PO SCH ×2 (09:42→21:02)
[2016-02-09] MEDS: Fluticasone Propionate Nasal 50 MCG/SPRAY BOTTLE NS SCH (09:44)
[2016-02-09] MEDS: Levalbuterol Neb 1.25 MG/3 ML IH PRN ×2 (09:54→22:49)
[2016-02-09] MEDS ORDERED: 0.9 % Sodium Chloride 1,000 ML IVC SCH (10:45)
--- NOTE | 2016-02-09 14:42 | ECHO - Doppler Report ---
Echocardiogram Name: Linda Jurado Date of Study: 02/09/2016 Date: 1940 Ht: 62.0 in Medical Record#: [id number] Age: 75 Wt: 127.0 lb Gender: Female BSA: 1.58 Order #: [id number] Location: [facility] Room #: [id number] Reading Physician: Manjeet Demarco MD, [facility] Art Preparator: Raeann Wang RVT Ordering Physician: Leonard Son DO Primary Physician: Valerie Hayes MD Indications: Congestive heart failure Impressions: Moderately dilated left ventricle. Moderate LV systolic dysfunction, LVEF 35-40%. There are regional wall motion abnormalities, see diagram below. Moderate left ventricular diastolic dysfunction. Normal right ventricular structure and function. Moderate-severely dilated left atrium. Mild mitral regurgitation. Moderate pulmonary hypertension. Estimated RVSP = 50-55 mmHg. Left Ventricular Wall Motion: Rest Echo Findings The mid inferior septal, basal inferior septal, mid anterior septal, mid inferior lateral, basal anterior septal and basal inferior lateral sidhu were hypokinetic. The apical inferior, mid inferior and basal inferior sidhu were akinetic. All other wall segments showed normal motion. Findings: Study Quality * Technically adequate exam. ECG Findings * Sinus rhythm with BBB. Left Ventricle * Moderately dilated left ventricle. * Moderate LV systolic dysfuction, LVEF 35-40%. There are regional wall motion abnormalities, see diagram below. * Normal LV wall thickness. * Moderate left ventricular diastolic dysfunction. Right Ventricle * Normal right ventricular structure and function. Left Atrium * Moderate-severely dilated left atrium. Right Atrium * Normal right atrial size. Aorta * Normally sized aortic root. Pericardium * There is a trivial pericardial effusion present. IVC * The IVC is mildly dilated with normal inspiratory collapse. Mitral Valve * Mildly thickened mitral valve leaflets. * No mitral stenosis. * Mild mitral regurgitation. Aortic Valve * Trileaflet aortic valve. * No aortic stenosis. * No aortic regurgitation. Tricuspid Valve * Normal tricuspid valve structure. * No tricuspid stenosis. * Trace tricuspid regurgitation. * Moderate pulmonary hypertension. Estimated RVSP = 50-55 mmHg. Pulmonic Valve * Pulmonic valve is not well visualized. * No pulmonic stenosis. * No pulmonic regurgitation. History Hypertension Diabetes Hypercholesteremia Family History of CAD History of CAD/PTCA Myocardial Infarction Congestive Heart Failure Congential Heart Disease 02/25/2013 a Previous Echo was performed. Measurements: BP: 138/ 65 2D Normal Values RVIDd: 2.60 cm IVSd: .90 cm 0.6 - 1.0 cm LVIDd: 5.90 cm 3.7 - 5.6 cm LVPWd: .80 cm 0.6 - 1.1 cm LVIDs: 4.70 cm 1.5 - 3.6 cm AO: 2.90 cm < 4.0 cm LA volume: 65.8 Mitral Valve Peak E:1.00 m/sec Peak A:.92 m/sec E/A Ratio:1.1 Peak E' Lat Naeem:7.2 cm/s Peak E' Med Naeem:5.1 cm/s E/E' Lat Ratio:13.8 E/E' Med Ratio:19.6 Tricuspid Valve TV Regurg Peak Grad: 45.00mmHg TV Regurg Peak Naeem: 3.37m/sec Updated by Manjeet Demarco MD, [facility] on 02/09/2016 2:35:54 PM electronically signed on 02/09/2016 2:37:51 PM with status of Final Wall Motion [place]: 1=Normal, 2=Hypokinesis, 3=Akinesis, 4=Dyskinesis, 5=Aneurysmal, 6=Hyperkinetic, X=Not Visualized (Blank)=Missing
--- NOTE | 2016-02-09 15:47 | Event Note ---
Date of Encounter: 02/09/16 Time of Encounter: 11:30 I examined this patient and my medical decision-making was reviewed with Dr. Son. I agree with the documented findings, disposition and treatment plan as described except to the extent set forth below. Patient states she feels better. CTAB. No crepitations. Labs reviewed. Contraction alkalosis. 1. COPD exacerbation 2. Chronic diastolic CHF 3. Chronic hypoxic respiratory failure due to COPD 4. HTN 5. Hyponatremia - Likely hypovolemic. IV fluids. Monitor. 6. DM-2 7. Contraction alkalosis Moderate risk due to unresolved COPD that needs further treatment and hyponatremia. Risk of falls and seizures. Ari Escobar MD
--- NOTE | 2016-02-09 16:02 | Internal Med Progress Note ---
Date of Encounter: 02/09/16 Time of Encounter: 11:00 - Assessment and plan (1) Acute exacerbation of chronic obstructive airways disease Current Visit: Yes Status: Ruled-out Assessment and plan: Patient has hx of COPD 2nd to tobacco abuse. Her productive sputum and wheezing is improving with nebulizer treatment. We will continue her on levaquin and oral prednisone as well. (2) Hyponatremia Current Visit: Yes Status: Chronic Assessment and plan: Acute on chronic hyponatremia. Hypovolemic, hypoosmolar, hyponatremia. TSH WNL, Serum osmololity 267. Urine sodium WNL. Urine osmolality >500. Etiology most likley combination of dehydration and diuresis. We will keep patient on diabetic diet and gently hydrate her. (3) Congestive heart failure Current Visit: Yes Status: Acute Assessment and plan: Echo states EF of 35-40% with moderate LV systolic and diastolic dysfunction with wall motion abnormalities. There is no change from her previous echocardiogram in 2013. She denies any chest pain. On PE her lungs are w/o crackles and she does not have pedal edema. Laboratory work shows a developing contraction alkalosis. Her lasix will be d/c and she will be hydrated with 0.9% NS at 50cc/hr. Qualifiers: Congestive heart failure type: combined Congestive heart failure chronicity : chronic Qualified Code(s): I50.42 - Chronic combined systolic (congestive) and diastolic (congestive) heart failure (4) Type 2 diabetes mellitus Current Visit: Yes Status: Acute Assessment and plan: Last HgA1c was 6.4 in 2015. Will repeat. She is staying hyperglycemic on Q6H lowdose sliding scale. Will sttart levamir 10units QHS. Diabetic diet. Qualifiers: Diabetes mellitus complication status: with circulatory complication Diabetes mellitus complication detail: with other circulatory complications Diabetes mellitus residential insulin use: without residential use Qualified Code( s): E11.59 - Type 2 diabetes mellitus with other circulatory complications (5) DVT prophylaxis Current Visit: Yes Status: Acute Assessment and plan: Heparin SQ. (6) CAD (coronary artery disease) Current Visit: Yes Status: Chronic Assessment and plan: Denies CP. Continue statin, metoprolol, plavix. Qualifiers: Coronary Disease-Associated Artery/Lesion type: [place] artery [place] vs. transplanted heart: [place] heart Associated angina: without angina Qualified Code(s): I25.10 - Atherosclerotic heart disease of [place] coronary artery without angina pectoris (7) Hypertension Current Visit: Yes Status: Chronic Assessment and plan: Controlled. Continue losartan, hydralazine, sotalol. Qualifiers: Hypertension type: essential hypertension Qualified Code(s): I10 - Essential (primary) hypertension - Subjective Interval history: Patient reports improvement in sob from yesterday. She denies CP, palpitations, abdominal pain, fever, chills, nausea, lower extremity swelling. - Constitutional Vitals: Temp Pulse Resp BP Pulse Ox 98.2 F 75 15 138/71 94 L 02/09/16 15:00 02/09/16 15:00 02/09/16 15:00 02/09/16 15:00 02/09/16 15:00 General appearance: Present: A&O X 3, no acute distress - Head Head exam: Present: atraumatic, normocephalic - Eye Eye exam: Present: EOMI, PERRL, conjuntiva pink, sclera anicteric - Neck Neck exam general surgery: Present: supple, trachea midline. Absent: lymphadenopathy - Respiratory Respiratory exam: Present: decreased breath sounds, wheezes. Absent: accessory muscle use, rales, rhonchi - Cardiovascular Cardiovascular exam: Present: RRR, +S1, +S2. Absent: diastolic murmur, gallop, rubs, systolic murmur - GI/Abdominal GI/Abdominal exam: Present: normal bowel sounds, soft, no peritoneal signs. Absent: distended, tenderness - Extremities Exam Extremities exam: Present: warm, radial pulses palpable and symetrical. Absent : calf tenderness, cyanotic, pedal edema - Neurological Exam Neurological exam: Present: CN II-XII intact, oriented X3, no focal deficits. Absent: pronater drift, facial droop, speech deficit - Skin Skin exam: Present: dry, intact Internal Medicine: Result - Labs CBC & Chem 7: 02/09/16 03:37 02/09/16 03:37 Consult Discharge Plan - Plan Referrals: Valerie Hayes MD [Primary Care Provider] - 02/16/16 3:15 pm (Norma with Dr Burt )
[2016-02-09] MEDS: levoFLOXacin 500 MG TABLET PO SCH (18:56)
[2016-02-09] MEDS: predniSONE 20 MG TABLET PO SCH (18:56)
[2016-02-09] MEDS: Insulin DETEMIR 100 UNIT/ML X5UNITS SQ SCH ×2 (21:01→21:26)
[2016-02-09] MEDS: Saline Nasal Spray 44 ML BOTTLE NS PRN (21:04)
[2016-02-10] MEDS: Insulin LISPRO 300 UNITS/3 ML VIAL SQ SCH ×5 (00:43→22:20)
[2016-02-10] MEDS: (Formoterol Fumarate [Perforomist] 20 MCG) IH SCH ×5 (03:44→16:53)
[2016-02-10] MEDS: Saline Nasal Spray 44 ML BOTTLE NS PRN ×2 (04:13→22:19)
[2016-02-10] MEDS: *HR* Heparin 5,000 UNIT/ML VIAL SQ SCH ×2 (05:51→16:24)
[2016-02-10 05:53] LABS: Basophils % 0.2 %; Hematocrit 30.9 % (35.3-44.9); Hemoglobin 10.5 g/dL (11.5-15.4); Immature Granulocytes % 1.2 % (0-4); Immature Platelets 3.5 % (1.1-6.1); Lymphocytes # 0.9 K/mcL (0.6-4.6); Lymphocytes % 17.5 %; Mean Corpuscular Hemoglobin 31.9 pg (28.0-33.3); Mean Corpuscular Volume 93.9 fL (83.0-100.0); Mean Platelet Volume 9.6 fL (9.4-12.4); Monocytes # 0.2 K/mcL (0.0-1.3); Monocytes % 4.6 %; Neutrophils # 3.8 K/mcL (1.6-8.9); Platelet Count 219 K/mcL (140-400); Red Blood Count 3.29 M/mcL (3.82-4.97); Red Cell Distribution Width 11.4 % (11.5-14.5); Segmented Neutrophils % 76.5 %
[2016-02-10 05:57] LABS: Ionized Calcium 1.06 mmol/L (1.15-1.35)
[2016-02-10 06:06] LABS: BUN/Creatinine Ratio 29 (6-26); Blood Urea Nitrogen 19 mg/dL (7-20); Calcium 8.8 mg/dL (8.6-10.8); Carbon Dioxide 34 mEq/L (19-29); Chloride 88 mEq/L (98-109); Glucose 187 mg/dL (70-99); Magnesium 1.7 mg/dL (1.6-2.6); Osmolality,Calculated 267 (280-300); Potassium 4.3 mEq/L (3.5-4.5); Sodium 125 mEq/L (136-145); eGFR For African Americans > 60 (> 60); eGFR For Non-African Americans > 60 (> 60)
[2016-02-10] MEDS: Ipratropium Neb 0.5 MG NEBULIZER IH SCH ×4 (07:29→17:00)
[2016-02-10] MEDS: Levalbuterol Neb 1.25 MG/3 ML IH SCH ×3 (07:29→17:00)
[2016-02-10] MEDS: hydrALAZINE 25 MG TABLET PO SCH ×2 (08:25→22:18)
[2016-02-10] MEDS: Aspirin Enteric Coated 81 MG Tablet PO SCH (08:25)
[2016-02-10] MEDS: Loratadine 10 MG TABLET PO SCH (08:26)
[2016-02-10] MEDS: *HR* LORazepam 0.5 MG TABLET PO SCH ×2 (08:27→22:15)
[2016-02-10] MEDS: Metoprolol XL (24 HR) Succ 50 MG TAB.ER.24H PO SCH (08:27)
[2016-02-10] MEDS: predniSONE 20 MG TABLET PO SCH ×2 (08:27→16:24)
[2016-02-10] MEDS: levoFLOXacin 500 MG TABLET PO SCH (08:28)
[2016-02-10] MEDS: Fluticasone Propionate Nasal 50 MCG/SPRAY BOTTLE NS SCH (08:30)
--- NOTE | 2016-02-10 12:34 | Internal Med Progress Note ---
<Leonard Son - Last Filed: 02/10/16 12:29> Date of Encounter: 02/10/16 Time of Encounter: 11:00 - Assessment and plan (1) Acute exacerbation of chronic obstructive airways disease Current Visit: Yes Status: Ruled-out Assessment and plan: Patient has hx of COPD 2nd to tobacco abuse. Her productive sputum and wheezing is improving with nebulizer treatment. We will continue her on levaquin and oral prednisone as well. Patient will be started on acapella flutter valve treatment to treat her chest congestion. She is unable to clear her chest. Mucinex has not helped. (2) Hyponatremia Current Visit: Yes Status: Chronic Assessment and plan: Acute on chronic hyponatremia. Hypovolemic, hypoosmolar, hyponatremia. TSH WNL, Serum osmololity 267. Urine sodium WNL. Urine osmolality >500. Etiology most likley combination of dehydration and diuresis. Patients Na is 125. Lasix is d/ c. BMP tomorrow. (3) Congestive heart failure Current Visit: Yes Status: Acute Assessment and plan: Echo states EF of 35-40% with moderate LV systolic and diastolic dysfunction with wall motion abnormalities. There is no change from her previous echocardiogram in 2013. She denies any chest pain. On PE her lungs are w/o crackles and she does not have pedal edema. Contraction alkalosis resolved. Qualifiers: Congestive heart failure type: combined Congestive heart failure chronicity : chronic Qualified Code(s): I50.42 - Chronic combined systolic (congestive) and diastolic (congestive) heart failure (4) Type 2 diabetes mellitus Current Visit: Yes Status: Acute Assessment and plan: Last HgA1c was 6.4 in 2014. Will repeat. She is staying hyperglycemic on Q6H lowdose sliding scale. Will sttart levamir 10units QHS. Diabetic diet. Qualifiers: Diabetes mellitus complication status: with circulatory complication Diabetes mellitus complication detail: with other circulatory complications Diabetes mellitus superintendent container terminal insulin use: without correction use Qualified Code( s): E11.59 - Type 2 diabetes mellitus with other circulatory complications (5) DVT prophylaxis Current Visit: Yes Status: Acute (6) CAD (coronary artery disease) Current Visit: Yes Status: Chronic Qualifiers: Coronary Disease-Associated Artery/Lesion type: [place] artery [place] vs. transplanted heart: [place] heart Associated angina: without angina Qualified Code(s): I25.10 - Atherosclerotic heart disease of [place] coronary artery without angina pectoris (7) Hypertension Current Visit: Yes Status: Chronic Qualifiers: Hypertension type: essential hypertension Qualified Code(s): I10 - Essential (primary) hypertension - Subjective Interval history: Patient reports improvement in sob from yesterday. She denies CP, palpitations, abdominal pain, fever, chills, nausea, lower extremity swelling. She continues to complain about chest congestion and difficulty clearing her chest. - Constitutional Vitals: Temp Pulse Resp BP Pulse Ox 98.2 F 68 16 126/72 98 02/10/16 11:03 02/10/16 11:03 02/10/16 12:07 02/10/16 11:03 02/10/16 12:07 General appearance: Present: A&O X 3, no acute distress - Respiratory Respiratory exam: Present: decreased breath sounds, prolonged expiratory phase, rhonchi. Absent: rales, respiratory distress, wheezes - Cardiovascular Cardiovascular exam: Present: RRR, +S1, +S2 - GI/Abdominal GI/Abdominal exam: Present: normal bowel sounds, soft, no peritoneal signs. Absent: distended, tenderness - Extremities Exam Extremities exam: Present: warm, radial pulses palpable and symetrical. Absent : calf tenderness, cyanotic, pedal edema Internal Medicine: Result - Labs CBC & Chem 7: 02/10/16 05:11 02/10/16 05:11 Labs: Short CBC 02/10/16 Range/Units 05:11 WBC 5.0 (4.3-11.1) K/mcL Hgb 10.5 L (11.5-15.4) g/dL Hct 30.9 L (35.3-44.9) % Plt Count 219 (140-400) K/mcL Neutrophils # 3.8 (1.6-8.9) K/mcL BMP 02/10/16 05:11 Sodium 125 L Potassium 4.3 Chloride 88 L Carbon Dioxide 34 H BUN 19 Creatinine 0.65 Glucose 187 H Calcium 8.8 - VTE Documentation of Mechanical Device: Graduated compression elastic hosiery Consult Discharge Plan - Plan Referrals: Valerie Hayes MD [Primary Care Provider] - 02/16/16 3:15 pm (Norma with Dr Burt ) <Ari Escobar - Last Filed: 02/10/16 15:48> Date of Encounter: 02/10/16 - Constitutional Vitals: Temp Pulse Resp BP Pulse Ox 97.9 F 77 16 153/55 95 02/10/16 15:41 02/10/16 15:41 02/10/16 15:41 02/10/16 15:41 02/10/16 15:41 Internal Medicine: Result - Labs CBC & Chem 7: 02/10/16 05:11 02/10/16 05:11 Labs: Short CBC 02/10/16 Range/Units 05:11 WBC 5.0 (4.3-11.1) K/mcL Hgb 10.5 L (11.5-15.4) g/dL Hct 30.9 L (35.3-44.9) % Plt Count 219 (140-400) K/mcL Neutrophils # 3.8 (1.6-8.9) K/mcL BMP 02/10/16 05:11 Sodium 125 L Potassium 4.3 Chloride 88 L Carbon Dioxide 34 H BUN 19 Creatinine 0.65 Glucose 187 H Calcium 8.8 - Attending Attestation I examined this patient and my medical decision-making was reviewed with Dr. Son. I agree with the documented findings, disposition and treatment plan as described except to the extent set forth below. Pt. reports feeling better. CTAB. No wheezing. Reduced breath sounds bilaterally. Pt. requesting performist nebulizer that she uses at home. 1. COPD exacerbation - Continue current steroids. Resume home performist. Pharmacy order placed. 2. CHF - Chronic systolic. Mild hypovolemia. IV fluids gentle hydration. Ari Escobar MD
[2016-02-10] MEDS ORDERED: 0.9 % Sodium Chloride 1,000 ML IVC SCH (13:45)
[2016-02-10] MEDS: Acetaminophen 325 MG TABLET PO PRN (16:26)
[2016-02-10] MEDS: Insulin DETEMIR 100 UNIT/ML X5UNITS SQ SCH (22:26)
[2016-02-11] MEDS: Ipratropium Neb 0.5 MG NEBULIZER IH SCH ×5 (00:30→21:56)
[2016-02-11] MEDS: Levalbuterol Neb 1.25 MG/3 ML IH SCH ×5 (00:30→21:56)
[2016-02-11] MEDS: (Formoterol Fumarate [Perforomist] 20 MCG) IH SCH ×3 (00:30→21:55)
[2016-02-11 05:17] LABS: Basophils % 0.4 %; Hematocrit 32.4 % (35.3-44.9); Hemoglobin 10.6 g/dL (11.5-15.4); Immature Granulocytes % 2.7 % (0-4); Lymphocytes # 1.3 K/mcL (0.6-4.6); Lymphocytes % 14.4 %; Mean Corpuscular HGB Conc 32.7 g/dL (31.6-35.5); Mean Corpuscular Hemoglobin 31.2 pg (28.0-33.3); Mean Corpuscular Volume 95.3 fL (83.0-100.0); Mean Platelet Volume 9.6 fL (9.4-12.4); Monocytes # 0.9 K/mcL (0.0-1.3); Monocytes % 9.5 %; Neutrophils # 6.6 K/mcL (1.6-8.9); Platelet Count 233 K/mcL (140-400); Red Cell Distribution Width 11.6 % (11.5-14.5)
[2016-02-11] MEDS: *HR* Heparin 5,000 UNIT/ML VIAL SQ SCH ×2 (05:20→17:14)
[2016-02-11 05:25] LABS: Ionized Calcium 1.09 mmol/L (1.15-1.35)
[2016-02-11 05:33] LABS: BUN/Creatinine Ratio 30 (6-26); Blood Urea Nitrogen 21 mg/dL (7-20); Calcium 9.1 mg/dL (8.6-10.8); Carbon Dioxide 32 mEq/L (19-29); Chloride 97 mEq/L (98-109); Glucose 120 mg/dL (70-99); Magnesium 2.2 mg/dL (1.6-2.6); Osmolality,Calculated 284 (280-300); Potassium 4.3 mEq/L (3.5-4.5); eGFR For African Americans > 60 (> 60); eGFR For Non-African Americans > 60 (> 60)
[2016-02-11 05:34] LABS: Sodium 135 mEq/L (136-145)
[2016-02-11] MEDS: Fluticasone Propionate Nasal 50 MCG/SPRAY BOTTLE NS SCH (09:14)
[2016-02-11] MEDS: Aspirin Enteric Coated 81 MG Tablet PO SCH (09:15)
[2016-02-11] MEDS: Acetaminophen 325 MG TABLET PO PRN ×2 (09:15→18:03)
[2016-02-11] MEDS: Loratadine 10 MG TABLET PO SCH (09:15)
[2016-02-11] MEDS: hydrALAZINE 25 MG TABLET PO SCH ×2 (09:16→20:23)
[2016-02-11] MEDS: levoFLOXacin 500 MG TABLET PO SCH (09:16)
[2016-02-11] MEDS: *HR* LORazepam 0.5 MG TABLET PO SCH ×2 (09:16→20:22)
[2016-02-11] MEDS: predniSONE 20 MG TABLET PO SCH (09:16)
[2016-02-11] MEDS: Metoprolol XL (24 HR) Succ 50 MG TAB.ER.24H PO SCH (09:16)
[2016-02-11] MEDS: Insulin LISPRO 300 UNITS/3 ML VIAL SQ SCH ×4 (09:17→20:23)
--- NOTE | 2016-02-11 12:25 | Cardiology Consult Note ---
Date of Encounter: 02/11/16 Time of Encounter: 12:17 Assessment and Plan (1) Cardiomyopathy Current Visit: Yes Status: Acute Known history of ischemic cardiomyopathy. Has refused ICD in past. Does not need any cardiac testing currently, can follow up with established hoop bender tank in [place]. Qualifiers: Cardiomyopathy type: ischemic Qualified Code(s): I25.5 - Ischemic cardiomyopathy Discussion w patient/family: The assessment and plan as outlined above was discussed with the patient and/or family members who expressed understanding and agreement. All questions were answered. Thank you for involving us in the care of your patient. Please call with any questions. History of Present Illness Consult date: 02/11/16 Requesting physician: Ari Escobar Consult reason: Shortness of breath History of present illness: Ms. Jurado is a 75 year old female with a history of COPD and ischemic cardiomyopathy. She has been admitted currently with COPD exacerbation. ECHO this admission showed EF 35-40%. This is similar to previous. Past Med Surg Social Fam HX - Past Medical History Medical history: CHF, COPD, diabetes, hyperlipidemia, hypertension, myocardial infarction Psychiatric history: anxiety - Past Surgical History Surgical History: angioplasty/stent (right external iliac), appendectomy, hysterectomy - Social History Smoking Status: Former smoker Smokeless Tobacco Status: No Alcohol use: none Drug use: none - Family History Father Living Status: Cause of : meningitis Hx Family Medical Disorders: Yes (alcoholic) Mother Living Status: Cause of : CAD Hx Family Cardiac Disorders: Yes Hx Family Respiratory Disorders: Yes Medications and Allergies Aspirin Enteric Coated [Aspirin EC] 81 mg PO DAILY 01/11/15 [History] Calcium Carbonate/Vitamin D3 [Calcium 600-Vit D3 800 Tablet] 1 each PO DAILY 02/25 [History] Clopidogrel [Plavix] 75 mg PO DAILY 01/11/15 [History] Furosemide [Lasix] 20 mg PO QAM 01/11/15 [History] HydrALAZINE 50 mg PO BID 01/11/15 [History] Levalbuterol Neb [Xopenex Neb] 1.25 mg IH Q4HR 01/11/15 [History] Loratadine [Claritin] 10 mg PO DAILY 01/11/15 [History] Losartan [Cozaar] 50 mg PO DAILY 01/11/15 [History] Multivitamin [Multi-Day Vitamins] 1 each PO DAILY 01/11/15 [History] Nitroglycerin [Nitrostat] 0.4 mg SL AD PRN 01/11/15 [History] Pravastatin Sodium [Pravachol] 40 mg PO DAILY 01/11/15 [History] Sotalol [Betapace] 80 mg PO Q12HR 01/11/15 [History] Fluticasone Propionate Nasal [Flonase] 50 mcg NS DAILY 09/12/15 [History] LORazepam [Ativan] 0.5 mg PO BID 09/12/15 [History] Metoprolol XL (24 HR) Succ [Toprol Xl] 50 mg PO DAILY 09/12/15 [History] Oxygen 2 l NS CONT 09/12/15 [History] GuaiFENesin ER [Mucinex] 600 mg PO BID PRN #20 tbbp.12hr 09/15/15 [Rx] HYDROcodone/Acet 5/325 mg [[place] 5-325 mg] 1 tab PO Q6HR PRN #15 tablet [Rx] Cefdinir [Omnicef] 300 mg PO BID 10 Days 02/05/16 [Rx] Formoterol Fumarate [Perforomist] 20 mcg IH Q4H 02/07/16 [History] Ipratropium Neb [Atrovent Neb] 0.5 mg IH Q4H 02/07/16 [History] Tizanidine HCl [Tizanidine HCl] 2 mg PO TID PRN 02/07/16 [History] Allergies ASIM Inhibitors Allergy (Verified 09/12/15 18:41) See Comments budesonide [From Symbicort] Allergy (Verified 09/12/15 18:41) Swelling of Lip/Tongue/Throat Cyclobenzaprine [From Flexeril] Allergy (Verified 09/12/15 18:41) Anaphylaxis ethacrynic acid [From Edecrin] Allergy (Verified 09/12/15 18:41) See Comments lisinopril [From Zestoretic] Allergy (Verified 09/12/15 18:41) See Comments moxifloxacin [From Avelox] Allergy (Verified 09/12/15 18:41) See Comments amlodipine [From Norvasc] Adverse Reaction (Verified 09/12/15 18:41) Diarrhea aspirin Adverse Reaction (Verified 09/12/15 18:41) See Comments azithromycin [From Zithromax] Adverse Reaction (Verified 09/12/15 18:41) Diarrhea citalopram [From Celexa] Adverse Reaction (Verified 09/12/15 18:41) See Comments fluticasone [From Advair Diskus] Adverse Reaction (Verified 09/12/15 18:41) Confusion Formoterol [From Dulera] Adverse Reaction (Verified 09/12/15 18:41) Muscle Pain gabapentin [From Neurontin] Adverse Reaction (Verified 09/12/15 18:41) Headache hydrochlorothiazide Adverse Reaction (Verified 09/12/15 18:41) See Comments levofloxacin [From Levaquin] Adverse Reaction (Verified 09/12/15 18:41) See Comments losartan [Losartan] Adverse Reaction (Verified 09/12/15 18:41) Diarrhea mometasone furoate [From Dulera] Adverse Reaction (Verified 09/12/15 18:41) Muscle Pain ofloxacin Adverse Reaction (Verified 09/12/15 18:41) Headache prednisone Adverse Reaction (Verified 09/12/15 18:41) See Comments rofecoxib [From Vioxx] Adverse Reaction (Verified 09/12/15 18:41) Nausea salmeterol [From Advair Diskus] Adverse Reaction (Verified 09/12/15 18:41) Confusion Serotonin 5HT-3 Antagonists Adverse Reaction (Verified 09/12/15 18:41) See Comments Sulfa (Sulfonamide Antibiotics) Adverse Reaction (Verified 09/12/15 18:41) Nausea tiotropium [From Spiriva with HandiHaler] Adverse Reaction (Verified 09/12/15 18 :41) See Comments tramadol Adverse Reaction (Verified 09/12/15 18:41) See Comments All Systems Review: A 10-system review of systems was performed and is negative for pertinent findings except as documented above in the HPI. Physical Examination Vital Signs, Last 4 Hours Temp Pulse Resp BP Pulse Ox 02/11/16 11:12 97.5 F L 74 15 154/70 99 General: Conversant, No Apparent Distress HEENT: Atraumatic, Normocephaly, Mucus Membranes Moist Neck: No JVD, Normal carotid pulses Cardiac: Reg Rate and Rhythm, Normal S1 and S2, No Murmur Lungs: Other (diffuse wheezing, decreased air movement) Neuro: Alert and responsive, No focal deficits noted Abdomen: Soft, Non-Tender Skin: No rashes noted on visualized skin Results 02/11/16 04:13 02/11/16 04:13 Lab Results 02/11/16 02/11/16 02/11/16 04:13 04:13 09:13 WBC 9.1 D Hgb 10.6 L Hct 32.4 L Plt Count 233 Sodium 135 L D Potassium 4.3 Chloride 97 L Carbon Dioxide 32 H BUN 21 H Creatinine 0.70 Glucose 120 H Calcium 9.1 Magnesium 2.2 Troponin I 0.03 Consult Discharge Plan - Plan Referrals: Valerie Hayes MD [Primary Care Provider] - 02/16/16 3:15 pm (Norma with Dr Burt )
--- NOTE | 2016-02-11 12:57 | Discharge Summary ---
Date of Encounter: 02/11/16 Time of Encounter: 10:15 - Discharge Diagnosis (1) COPD (chronic obstructive pulmonary disease) Priority: Primary Status: Acute Qualifiers: COPD type: COPD with acute exacerbation Qualified Code(s): J44.1 - Chronic obstructive pulmonary disease with (acute) exacerbation (2) Respiratory failure Priority: Secondary Status: Chronic Qualifiers: Chronicity: chronic Respiratory failure complication: hypoxia Qualified Code(s): J96.11 - Chronic respiratory failure with hypoxia (3) Congestive heart failure Priority: Secondary Status: Chronic Qualifiers: Congestive heart failure type: combined Congestive heart failure chronicity : chronic Qualified Code(s): I50.42 - Chronic combined systolic (congestive) and diastolic (congestive) heart failure (4) Type 2 diabetes mellitus Priority: Secondary Status: Chronic Qualifiers: Diabetes mellitus complication status: with circulatory complication Diabetes mellitus complication detail: with other circulatory complications Diabetes mellitus prison insulin use: without prison use Qualified Code( s): E11.59 - Type 2 diabetes mellitus with other circulatory complications (5) Hypertension Priority: Secondary Status: Chronic Qualifiers: Hypertension type: essential hypertension Qualified Code(s): I10 - Essential (primary) hypertension (6) Hyponatremia Priority: Secondary Status: Resolved - Discharge Medications Prescriptions: PredniSONE 10 mg PO TAPER #30 tablet Home Medications: Aspirin Enteric Coated [Aspirin EC] 81 mg PO DAILY 01/11/15 [History] Calcium Carbonate/Vitamin D3 [Calcium 600-Vit D3 800 Tablet] 1 each PO DAILY 02/25 [History] Clopidogrel [Plavix] 75 mg PO DAILY 01/11/15 [History] Furosemide [Lasix] 20 mg PO QAM 01/11/15 [History] HydrALAZINE 50 mg PO BID 01/11/15 [History] Levalbuterol Neb [Xopenex Neb] 1.25 mg IH Q4HR 01/11/15 [History] Loratadine [Claritin] 10 mg PO DAILY 01/11/15 [History] Losartan [Cozaar] 50 mg PO DAILY 01/11/15 [History] Multivitamin [Multi-Day Vitamins] 1 each PO DAILY 01/11/15 [History] Nitroglycerin [Nitrostat] 0.4 mg SL AD PRN 01/11/15 [History] Pravastatin Sodium [Pravachol] 40 mg PO DAILY 01/11/15 [History] Sotalol [Betapace] 80 mg PO Q12HR 01/11/15 [History] Fluticasone Propionate Nasal [Flonase] 50 mcg NS DAILY 09/12/15 [History] LORazepam [Ativan] 0.5 mg PO BID 09/12/15 [History] Metoprolol XL (24 HR) Succ [Toprol Xl] 50 mg PO DAILY 09/12/15 [History] Oxygen 2 l NS CONT 09/12/15 [History] GuaiFENesin ER [Mucinex] 600 mg PO BID PRN #20 tbbp.12hr 09/15/15 [Rx] HYDROcodone/Acet 5/325 mg [[place] 5-325 mg] 1 tab PO Q6HR PRN #15 tablet [Rx] Formoterol Fumarate [Perforomist] 20 mcg IH Q4H 02/07/16 [History] Ipratropium Neb [Atrovent Neb] 0.5 mg IH Q4H 02/07/16 [History] Tizanidine HCl 2 mg PO TID PRN 02/07/16 [History] PredniSONE 10 mg PO TAPER #30 tablet 02/11/16 [Rx] Allergies/Adverse Reactions: Allergies ASIM Inhibitors Allergy (Verified 09/12/15 18:41) See Comments budesonide [From Symbicort] Allergy (Verified 09/12/15 18:41) Swelling of Lip/Tongue/Throat Cyclobenzaprine [From Flexeril] Allergy (Verified 09/12/15 18:41) Anaphylaxis ethacrynic acid [From Edecrin] Allergy (Verified 09/12/15 18:41) See Comments lisinopril [From Zestoretic] Allergy (Verified 09/12/15 18:41) See Comments moxifloxacin [From Avelox] Allergy (Verified 09/12/15 18:41) See Comments amlodipine [From Norvasc] Adverse Reaction (Verified 09/12/15 18:41) Diarrhea aspirin Adverse Reaction (Verified 09/12/15 18:41) See Comments azithromycin [From Zithromax] Adverse Reaction (Verified 09/12/15 18:41) Diarrhea citalopram [From Celexa] Adverse Reaction (Verified 09/12/15 18:41) See Comments fluticasone [From Advair Diskus] Adverse Reaction (Verified 09/12/15 18:41) Confusion Formoterol [From Dulera] Adverse Reaction (Verified 09/12/15 18:41) Muscle Pain gabapentin [From Neurontin] Adverse Reaction (Verified 09/12/15 18:41) Headache hydrochlorothiazide Adverse Reaction (Verified 09/12/15 18:41) See Comments levofloxacin [From Levaquin] Adverse Reaction (Verified 09/12/15 18:41) See Comments losartan [Losartan] Adverse Reaction (Verified 09/12/15 18:41) Diarrhea mometasone furoate [From Dulera] Adverse Reaction (Verified 09/12/15 18:41) Muscle Pain ofloxacin Adverse Reaction (Verified 09/12/15 18:41) Headache prednisone Adverse Reaction (Verified 09/12/15 18:41) See Comments rofecoxib [From Vioxx] Adverse Reaction (Verified 09/12/15 18:41) Nausea salmeterol [From Advair Diskus] Adverse Reaction (Verified 09/12/15 18:41) Confusion Serotonin 5HT-3 Antagonists Adverse Reaction (Verified 09/12/15 18:41) See Comments Sulfa (Sulfonamide Antibiotics) Adverse Reaction (Verified 09/12/15 18:41) Nausea tiotropium [From Spiriva with HandiHaler] Adverse Reaction (Verified 09/12/15 18 :41) See Comments tramadol Adverse Reaction (Verified 09/12/15 18:41) See Comments Date of admission: 02/09/16 08:54 Primary care physician: Valerie Hayes Consults: 02/11/16 08:12 Consult to Cardiology [CONS] Routine Comment: Consulting Provider: Cardiology Rosio Reason for Consult: CHF; WMAs Call Completed: No Discharging clinician: Ari Escobar Anticipated date of discharge: 02/11/16 - Patient Status Disposition: Home Health Service Condition: Fair Functional capacity at discharge: uses cane/walker Overall status at discharge: patient is progressing back to baseline - Discharge Instructions Follow Up With: Valerie Hayes MD [Primary Care Provider] - 02/16/16 3:15 pm (Norma with Dr Burt ) - Diet and Activity Activity: as per physical therapy, increase activity as tolerated, resume usual activities as tolerated, wear oxygen at all times Diet: advance to your usual diet Hospital course: Ms. Jurado is a 75 year old female with a history of systolic and diastolic CHF, end-stage COPD on home oxygen who presented to the emergency room due to worsening shortness of breath. Patient was admitted with a diagnosis of COPD exacerbation. She was placed on intravenous steroids and antibiotics. Due to suspicion of CHF exacerbation, she was given diuretics. She developed contraction alkalosis and was given fluids with resolution of the alkalosis. An echocardiogram was obtained which revealed unchanged ejection fraction. Cardiology was consulted. The patient refused ICD offered by cardiology. No further inpatient cardiac workup has been recommended. The patient can follow up with her can striper in [place]. Her breathing is back to her baseline. She was given a flutter valve to help with clearance of secretions. As the patient is currently feeling better and close to baseline, she is being discharged home on a steroid taper. - Time Spent with Patient Total time spent providing and/or coordinating discharge services: Greater than 30 minutes (40) - Constitutional Vitals: Temp Pulse Resp BP Pulse Ox 97.5 F L 74 15 154/70 99 02/11/16 11:12 02/11/16 11:12 02/11/16 11:12 02/11/16 11:12 02/11/16 11:12 General appearance: Present: A&O X 3, no acute distress Exam: Gen.: Lying in bed. No acute distress. Chest: Clear to auscultation bilaterally. No adventitious sounds present. CVS: First and second heart sounds present. No murmurs, rubs or gallops. Abdomen: Soft, nontender, nondistended. Bowel sounds present. - VTE Documentation of Mechanical Device: Graduated compression elastic hosiery
[2016-02-11] MEDS: Saline Nasal Spray 44 ML BOTTLE NS PRN (17:26)
[2016-02-11] MEDS: Insulin DETEMIR 100 UNIT/ML X5UNITS SQ SCH (20:23)
[2016-02-12] MEDS: Ipratropium Neb 0.5 MG NEBULIZER IH SCH ×4 (04:01→22:45)
[2016-02-12] MEDS: Acetaminophen 325 MG TABLET PO PRN ×3 (05:10→22:08)
[2016-02-12] MEDS: *HR* Heparin 5,000 UNIT/ML VIAL SQ SCH ×2 (05:11→16:01)
[2016-02-12] MEDS: GuaiFENesin/Codeine Oral Soln 5 ML UDC PO PRN ×3 (05:40→22:09)
[2016-02-12] MEDS: Insulin LISPRO 300 UNITS/3 ML VIAL SQ SCH ×4 (08:16→22:13)
[2016-02-12] MEDS: Fluticasone Propionate Nasal 50 MCG/SPRAY BOTTLE NS SCH (08:37)
[2016-02-12] MEDS: Loratadine 10 MG TABLET PO SCH (08:38)
[2016-02-12] MEDS: Aspirin Enteric Coated 81 MG Tablet PO SCH (08:38)
[2016-02-12] MEDS: predniSONE 20 MG TABLET PO SCH (08:38)
[2016-02-12] MEDS: *HR* LORazepam 0.5 MG TABLET PO SCH ×2 (08:38→22:10)
[2016-02-12] MEDS: hydrALAZINE 25 MG TABLET PO SCH ×2 (08:39→22:11)
[2016-02-12] MEDS: levoFLOXacin 500 MG TABLET PO SCH (08:39)
[2016-02-12] MEDS: Metoprolol XL (24 HR) Succ 50 MG TAB.ER.24H PO SCH (08:39)
[2016-02-12] MEDS: Levalbuterol Neb 1.25 MG/3 ML IH SCH ×4 (09:07→22:45)
[2016-02-12] MEDS: (Formoterol Fumarate [Perforomist] 20 MCG) IH SCH ×2 (10:20→20:15)
--- NOTE | 2016-02-12 16:19 | Event Note ---
Date of Encounter: 02/12/16 Time of Encounter: 16:17 shelbie admitted for acute COPD exacerbation, was discharged yesterday, however did not leave due to social work issues and insurance for approval to [facility]. she was seen at the bedside, was found to be at her baseline, denies any complaints, saturating well on NC. will continue PO prednisone with oral antibiotics and duonebs until discharge.
[2016-02-12] MEDS: Insulin DETEMIR 100 UNIT/ML X5UNITS SQ SCH (22:12)
[2016-02-13] MEDS: Ipratropium Neb 0.5 MG NEBULIZER IH SCH ×4 (03:23→22:32)
[2016-02-13] MEDS: *HR* Heparin 5,000 UNIT/ML VIAL SQ SCH ×3 (06:27→18:17)
[2016-02-13] MEDS: Insulin LISPRO 300 UNITS/3 ML VIAL SQ SCH ×4 (07:33→21:13)
[2016-02-13] MEDS: Aspirin Enteric Coated 81 MG Tablet PO SCH (07:39)
[2016-02-13] MEDS: levoFLOXacin 500 MG TABLET PO SCH (07:39)
[2016-02-13] MEDS: Loratadine 10 MG TABLET PO SCH (07:39)
[2016-02-13] MEDS: predniSONE 20 MG TABLET PO SCH (07:39)
[2016-02-13] MEDS: *HR* LORazepam 0.5 MG TABLET PO SCH ×2 (07:40→21:11)
[2016-02-13] MEDS: hydrALAZINE 25 MG TABLET PO SCH ×2 (07:40→21:12)
[2016-02-13] MEDS: Metoprolol XL (24 HR) Succ 50 MG TAB.ER.24H PO SCH (07:40)
[2016-02-13] MEDS: GuaiFENesin/Codeine Oral Soln 5 ML UDC PO PRN ×2 (07:42→21:14)
[2016-02-13] MEDS: Acetaminophen 325 MG TABLET PO PRN ×2 (07:42→21:11)
[2016-02-13] MEDS: Fluticasone Propionate Nasal 50 MCG/SPRAY BOTTLE NS SCH (07:43)
[2016-02-13] MEDS: (Formoterol Fumarate [Perforomist] 20 MCG) IH SCH ×2 (08:26→20:05)
[2016-02-13] MEDS: Levalbuterol Neb 1.25 MG/3 ML IH SCH ×4 (10:20→22:32)
--- NOTE | 2016-02-13 18:09 | Event Note ---
Date of Encounter: 02/13/16 Time of Encounter: 18:08 shelbie admitted for acute COPD exacerbation, medically ready for discharge however did not leave due to social work issues and insurance for approval to [facility]. she was seen at the bedside, was found to be at her baseline,has walked around the hallway, denies any complaints, saturating well on NC. will continue PO prednisone with oral antibiotics and duonebs until discharge.
[2016-02-13] MEDS: Insulin DETEMIR 100 UNIT/ML X5UNITS SQ SCH (22:08)
[2016-02-14] MEDS: Ipratropium Neb 0.5 MG NEBULIZER IH SCH ×4 (03:34→22:19)
[2016-02-14] MEDS: *HR* Heparin 5,000 UNIT/ML VIAL SQ SCH ×2 (05:48→18:00)
[2016-02-14] MEDS: (Formoterol Fumarate [Perforomist] 20 MCG) IH SCH ×2 (07:43→19:49)
[2016-02-14] MEDS: Levalbuterol Neb 1.25 MG/3 ML IH SCH ×4 (07:45→22:19)
[2016-02-14] MEDS: Insulin LISPRO 300 UNITS/3 ML VIAL SQ SCH ×4 (08:03→21:37)
[2016-02-14] MEDS: Acetaminophen 325 MG TABLET PO PRN ×2 (08:08→21:38)
[2016-02-14] MEDS: Fluticasone Propionate Nasal 50 MCG/SPRAY BOTTLE NS SCH (08:08)
[2016-02-14] MEDS: *HR* LORazepam 0.5 MG TABLET PO SCH ×2 (08:09→21:35)
[2016-02-14] MEDS: Loratadine 10 MG TABLET PO SCH (08:09)
[2016-02-14] MEDS: Aspirin Enteric Coated 81 MG Tablet PO SCH (08:09)
[2016-02-14] MEDS: Metoprolol XL (24 HR) Succ 50 MG TAB.ER.24H PO SCH (08:09)
[2016-02-14] MEDS: predniSONE 20 MG TABLET PO SCH (08:09)
[2016-02-14] MEDS: hydrALAZINE 25 MG TABLET PO SCH ×2 (08:10→21:36)
[2016-02-14] MEDS: levoFLOXacin 500 MG TABLET PO SCH (08:10)
--- NOTE | 2016-02-14 16:18 | Event Note ---
Date of Encounter: 02/14/16 Time of Encounter: 16:17 shelbie admitted for acute COPD exacerbation, medically ready for discharge however did not leave due to social work issues and insurance for approval to [facility]. she was seen at the bedside, was found to be at her baseline,has been walking around the hallway, denies any complaints, saturating well on NC. will continue PO prednisone with oral antibiotics and duonebs until discharge. waiting for prior auth
[2016-02-14] MEDS: Insulin DETEMIR 100 UNIT/ML X5UNITS SQ SCH (21:36)
[2016-02-14] MEDS: GuaiFENesin/Codeine Oral Soln 5 ML UDC PO PRN (21:38)
[2016-02-15] MEDS: Ipratropium Neb 0.5 MG NEBULIZER IH SCH ×3 (03:14→15:24)
[2016-02-15] MEDS: *HR* Heparin 5,000 UNIT/ML VIAL SQ SCH (06:12)
[2016-02-15] MEDS: Levalbuterol Neb 1.25 MG/3 ML IH SCH ×3 (07:50→15:24)
[2016-02-15] MEDS: (Formoterol Fumarate [Perforomist] 20 MCG) IH SCH (07:50)
[2016-02-15] MEDS: Insulin LISPRO 300 UNITS/3 ML VIAL SQ SCH ×2 (09:00→12:40)
[2016-02-15] MEDS: hydrALAZINE 25 MG TABLET PO SCH (09:04)
[2016-02-15] MEDS: predniSONE 20 MG TABLET PO SCH (09:05)
[2016-02-15] MEDS: levoFLOXacin 500 MG TABLET PO SCH (09:06)
[2016-02-15] MEDS: Aspirin Enteric Coated 81 MG Tablet PO SCH (09:06)
[2016-02-15] MEDS: Metoprolol XL (24 HR) Succ 50 MG TAB.ER.24H PO SCH (09:06)
[2016-02-15] MEDS: Loratadine 10 MG TABLET PO SCH (09:07)
[2016-02-15] MEDS: *HR* LORazepam 0.5 MG TABLET PO SCH (09:07)
[2016-02-15] MEDS: Fluticasone Propionate Nasal 50 MCG/SPRAY BOTTLE NS SCH (09:08)
[2016-02-15] MEDS: GuaiFENesin/Codeine Oral Soln 5 ML UDC PO PRN (09:15)
[2016-02-15 11:25] VITALS: BP 150/68
--- NOTE | 2016-02-15 15:03 | Physician Discharge Referral ---
ExtendedCare Referral Info Transfer To: f Provider in Charge: simin mata Institutional Level of Care: Skilled Prognosis: Fair Aware of Diagnosis: Patient, Family Aware of Prognosis: Patient, Family - Transfer Medications Prescriptions: PredniSONE 10 mg PO TAPER #30 tablet Home Medications: Aspirin Enteric Coated [Aspirin EC] 81 mg PO DAILY 01/11/15 [History] Calcium Carbonate/Vitamin D3 [Calcium 600-Vit D3 800 Tablet] 1 each PO DAILY 02/25 [History] Clopidogrel [Plavix] 75 mg PO DAILY 01/11/15 [History] Furosemide [Lasix] 20 mg PO QAM 01/11/15 [History] HydrALAZINE 50 mg PO BID 01/11/15 [History] Levalbuterol Neb [Xopenex Neb] 1.25 mg IH Q4HR 01/11/15 [History] Loratadine [Claritin] 10 mg PO DAILY 01/11/15 [History] Losartan [Cozaar] 50 mg PO DAILY 01/11/15 [History] Multivitamin [Multi-Day Vitamins] 1 each PO DAILY 01/11/15 [History] Nitroglycerin [Nitrostat] 0.4 mg SL AD PRN 01/11/15 [History] Pravastatin Sodium [Pravachol] 40 mg PO DAILY 01/11/15 [History] Sotalol [Betapace] 80 mg PO Q12HR 01/11/15 [History] Fluticasone Propionate Nasal [Flonase] 50 mcg NS DAILY 09/12/15 [History] LORazepam [Ativan] 0.5 mg PO BID 09/12/15 [History] Metoprolol XL (24 HR) Succ [Toprol Xl] 50 mg PO DAILY 09/12/15 [History] Oxygen 2 l NS CONT 09/12/15 [History] GuaiFENesin ER [Mucinex] 600 mg PO BID PRN #20 tbbp.12hr 09/15/15 [Rx] HYDROcodone/Acet 5/325 mg [[place] 5-325 mg] 1 tab PO Q6HR PRN #15 tablet [Rx] Formoterol Fumarate [Perforomist] 20 mcg IH Q4H 02/07/16 [History] Ipratropium Neb [Atrovent Neb] 0.5 mg IH Q4H 02/07/16 [History] Tizanidine HCl 2 mg PO TID PRN 02/07/16 [History] PredniSONE 10 mg PO TAPER #30 tablet 02/11/16 [Rx] Allergies/Adverse Reactions: Allergies ASIM Inhibitors Allergy (Verified 09/12/15 18:41) See Comments budesonide [From Symbicort] Allergy (Verified 09/12/15 18:41) Swelling of Lip/Tongue/Throat Cyclobenzaprine [From Flexeril] Allergy (Verified 09/12/15 18:41) Anaphylaxis ethacrynic acid [From Edecrin] Allergy (Verified 09/12/15 18:41) See Comments lisinopril [From Zestoretic] Allergy (Verified 09/12/15 18:41) See Comments moxifloxacin [From Avelox] Allergy (Verified 09/12/15 18:41) See Comments amlodipine [From Norvasc] Adverse Reaction (Verified 09/12/15 18:41) Diarrhea aspirin Adverse Reaction (Verified 09/12/15 18:41) See Comments azithromycin [From Zithromax] Adverse Reaction (Verified 09/12/15 18:41) Diarrhea citalopram [From Celexa] Adverse Reaction (Verified 09/12/15 18:41) See Comments fluticasone [From Advair Diskus] Adverse Reaction (Verified 09/12/15 18:41) Confusion Formoterol [From Dulera] Adverse Reaction (Verified 09/12/15 18:41) Muscle Pain gabapentin [From Neurontin] Adverse Reaction (Verified 09/12/15 18:41) Headache hydrochlorothiazide Adverse Reaction (Verified 09/12/15 18:41) See Comments levofloxacin [From Levaquin] Adverse Reaction (Verified 09/12/15 18:41) See Comments losartan [Losartan] Adverse Reaction (Verified 09/12/15 18:41) Diarrhea mometasone furoate [From Dulera] Adverse Reaction (Verified 09/12/15 18:41) Muscle Pain ofloxacin Adverse Reaction (Verified 09/12/15 18:41) Headache prednisone Adverse Reaction (Verified 09/12/15 18:41) See Comments rofecoxib [From Vioxx] Adverse Reaction (Verified 09/12/15 18:41) Nausea salmeterol [From Advair Diskus] Adverse Reaction (Verified 09/12/15 18:41) Confusion Serotonin 5HT-3 Antagonists Adverse Reaction (Verified 09/12/15 18:41) See Comments Sulfa (Sulfonamide Antibiotics) Adverse Reaction (Verified 09/12/15 18:41) Nausea tiotropium [From Spiriva with HandiHaler] Adverse Reaction (Verified 09/12/15 18 :41) See Comments tramadol Adverse Reaction (Verified 09/12/15 18:41) See Comments - Respiratory Orders Oxygen / L per min (2l) Smoking Cessation: Smoking cessation has been advised. For more information, call the [place] Tobacco Quit Line at 2-018-NVBS-NOW. - Advance Directives Code Status: Full Code - Mobility Orders Chair, Ambulate - Rehabiliation Orders Rehab Potential: Fair Rehab Orders: Evaluation for Physical Therapy, Evaluation for Occupational Therapy - Diet Orders Regular CERTIFICATION: I certify that the transfer of the above named patient to an Extended Care Facility is necessary for the continuing treatment of the diagnosis listed. The above information is true and accurate reflection of patient's current condition. Confidential - Redisclosure prohibited without a patient's written consent.
--- NOTE | 2016-02-15 18:30 | Event Note ---
Date of Encounter: 02/15/16 Time of Encounter: 18:29 shelbie admitted for acute COPD exacerbation, medically ready for discharge however did not leave due to social work issues and insurance for approval to ECF. today has been approved and is stable for discharge to ECF.
== END 2016-02-15 16:05 | DRG 191 ==
LOC: EMEROO 14:23 → 3BNU 14:23 → SUATTDRO 17:13 → 3BNU 18:04 → SUATTDRO 02-09 08:54 → UNDODISIN 02-15 16:05
PROVIDERS: ADMIT Internal Medicine; ATTEND Internal Medicine Endocrinology, Diabetes & Metabolism

== ENCOUNTER 2017-08-08 09:00 | Inpatient (IN) ==
[2017-08-08] MEDS ORDERED: Naloxone 0.4 MG/ML INJ IVP PRN (11:37)
[2017-08-08] MEDS ORDERED: NON-FORMULARY MEDICATION 1 EACH EACH (Oxygen [Oxygen] 2 L) NS SCH (11:45)
--- NOTE | 2017-08-08 11:57 | Internal Med History&Physical ---
<Yulisa Zamudio - Last Filed: 08/08/17 11:53> Date of Encounter: 08/08/17 Time of Encounter: 11:54 Internal Medicine - H&P: HPI Chief complaint: Dyspnea Admitted From: Home Plans for Post Hospital Care: Home History of present illness: Ms. Jurado is a 77 year old female with hx of COPD, heart failure, CAD, cardiomyopathy, DM type II, anxiety, HLD, and hypertension. Patient here from [facility] ED. Apparently the patient woke up at 3:00 this morning with dyspnea , she was unable to catch her breath. Patient indicated she should called the squad two other times in this time the squad indicated that it was best if she was evaluated at the ED. The patient agreed and was sent to [facility]. Labs showed BNP of 1492, creatinine 0.55, abg with ph of 7.31 and PCO2 of .78, serum carbon dioxide is 40. The patient wears o2 2L all the time at home. She indicated that she had trouble in the past with steroids, but after speaking with the patient, she was referring to either a lovenox or heparin injection. She agreed to try oral prednisone. Lungs noted to have tight wheezes and diminished throughout, she indicated that she takes her bronchodilators at home routinely. Plan is to increase home dosing of furosemide, bronchodilators, begin steroids, if patient able to tolerate. Past Med Surg Social Fam HX - Past Medical History Medical history: CHF, COPD, diabetes, hyperlipidemia, hypertension, myocardial infarction Additional medical history: Seasonal allergies Psychiatric history: anxiety - Past Surgical History Surgical History: angioplasty/stent, appendectomy, hysterectomy Additional surgical history: Lt thumb surgery, leg stents, angiogram, cardiac stents - Social History Smoking Status: Former smoker Smokeless Tobacco Status: No Alcohol use: none Drug use: none - Family History Father Living Status: Hx Family Cardiac Disorders: Yes Mother Living Status: Hx Family Cardiac Disorders: Yes Hx Family Respiratory Disorders: Yes Hx Family GI Disorders: Yes Internal Medicine - H&P: Meds Aspirin Enteric Coated [Aspirin EC] 81 mg PO DAILY 01/11/15 [History] Calcium Carbonate/Vitamin D3 [Calcium 600-Vit D3 800 Tablet] 1 each PO DAILY 02/25 [History] Clopidogrel [Plavix] 75 mg PO DAILY 01/11/15 [History] Furosemide [Lasix] 20 mg PO QAM 01/11/15 [History] HydrALAZINE 50 mg PO BID 01/11/15 [History] Levalbuterol Neb [Xopenex Neb] 1.25 mg IH Q4HR 01/11/15 [History] Loratadine [Claritin] 10 mg PO DAILY 01/11/15 [History] Losartan [Cozaar] 100 mg PO DAILY 01/11/15 [History] Multivitamin [Multi-Day Vitamins] 1 each PO DAILY 01/11/15 [History] Nitroglycerin [Nitrostat] 0.4 mg SL AD PRN 01/11/15 [History] Pravastatin Sodium [Pravachol] 40 mg PO DAILY 01/11/15 [History] Sotalol [Betapace] 80 mg PO Q12HR 01/11/15 [History] LORazepam [Ativan] 0.5 mg PO BID 09/12/15 [History] Metoprolol XL (24 HR) Succ [Toprol Xl] 12.5 mg PO DAILY 09/12/15 [History] Oxygen 2 l NS CONT 09/12/15 [History] GuaiFENesin ER [Mucinex] 600 mg PO BID PRN #20 tbbp.12hr 09/15/15 [Rx] Formoterol Fumarate [Perforomist] 20 mcg IH BID 02/07/16 [History] Acetaminophen [Tylenol] 1,000 mg PO TID 08/08/17 [History] 3 Allergy/AdvReac Type Severity Reaction Status Date / Time ASIM Inhibitors Allergy See Verified 08/08/17 05:22 Comments budesonide [From Symbicort] Allergy Swelling Verified 08/08/17 05:22 of Lip/Tongue/Throat Cyclobenzaprine Allergy Anaphylaxis Verified 08/08/17 05:22 [From Flexeril] ethacrynic acid Allergy See Verified 08/08/17 05:22 [From Edecrin] Comments lisinopril [From Zestoretic] Allergy See Verified 08/08/17 05:22 Comments moxifloxacin [From Avelox] Allergy See Verified 08/08/17 05:22 Comments amlodipine [From Norvasc] AdvReac Diarrhea Verified 08/08/17 05:22 aspirin AdvReac See Verified 08/08/17 05:22 Comments azithromycin [From Zithromax] AdvReac Diarrhea Verified 08/08/17 05:22 citalopram [From Celexa] AdvReac See Verified 08/08/17 05:22 Comments fluticasone AdvReac Confusion Verified 08/08/17 05:22 [From Advair Diskus] Formoterol [From Dulera] AdvReac Muscle Pain Verified 08/08/17 05:22 gabapentin [From Neurontin] AdvReac Headache Verified 08/08/17 05:22 hydrochlorothiazide AdvReac See Verified 08/08/17 05:22 Comments levofloxacin [From Levaquin] AdvReac See Verified 08/08/17 05:22 Comments losartan [Losartan] AdvReac Diarrhea Verified 08/08/17 05:22 mometasone furoate AdvReac Muscle Pain Verified 08/08/17 05:22 [From Dulera] ofloxacin AdvReac Headache Verified 08/08/17 05:22 prednisone AdvReac See Verified 08/08/17 05:22 Comments rofecoxib [From Vioxx] AdvReac Nausea Verified 08/08/17 05:22 salmeterol AdvReac Confusion Verified 08/08/17 05:22 [From Advair Diskus] Serotonin 5HT-3 Antagonists AdvReac See Verified 08/08/17 05:22 Comments Sulfa (Sulfonamide AdvReac Nausea Verified 08/08/17 05:22 Antibiotics) tiotropium AdvReac See Verified 08/08/17 05:22 [From Spiriva with Comments HandiHaler] tramadol AdvReac See Verified 08/08/17 05:22 Comments All Systems PM: A 10-system review of systems was performed and is negative for pertinent findings except as documented above in the HPI. - Constitutional Constitutional: no chills, no fever(s), no night sweats - EENT Eyes: no change in vision, no discharge, no pain, no photophobia Ears: no ear discharge, no ear pain, no tinnitus Nose, mouth and throat: no dysphagia, no nasal discharge, no neck pain, no sore throat - Cardiovascular Cardiovascular ROS IM: dyspnea, no chest pain, no diaphoresis, no lightheadedness, no palpitations, no syncope - Respiratory Respiratory: cough, dyspnea, wheezing, chest congestion, excessive phlegm production - Gastrointestinal Gastrointestinal: no abdominal pain, no diarrhea, no hematemesis, no hematochezia, no melena, no nausea, no vomiting - Genitourinary Genitourinary: no change in urinary stream, no dysuria, no flank pain, no hematuria - Musculoskeletal Musculoskeletal ROS IM: no numbness, no tingling - Integumentary Integumentary IM: no rash, no unusual bruising - Neurological Neurological ROS: no confusion, no convulsions, no focal weakness, no numbness, no tingling, no tremor(s) - Hematologic/Lymphatic Hematologic/Lymphatic: no easy bruising - Constitutional Vitals: Temp Pulse Resp BP Pulse Ox 97.4 F L 77 21 172/82 99 08/08/17 10:41 08/08/17 10:41 08/08/17 10:41 08/08/17 10:41 08/08/17 10:41 General appearance: Present: cooperative, A&O X 3, answers questions appropriately - Head Head exam: Present: atraumatic, normocephalic - Eye Eye exam: Present: PERRL, conjuntiva pink, sclera anicteric Pupils: Present: PERRL - Neck Neck exam general surgery: Present: supple, trachea midline. Absent: lymphadenopathy - Respiratory Respiratory exam: Present: decreased breath sounds, wheezes. Absent: accessory muscle use, rales, rhonchi - Cardiovascular Cardiovascular exam: Present: RRR, +S1, +S2. Absent: diastolic murmur, gallop, rubs, systolic murmur - GI/Abdominal GI/Abdominal exam: Present: normal bowel sounds, soft, no peritoneal signs. Absent: distended, tenderness - Extremities Exam Extremities exam: Present: warm, radial pulses palpable and symmetrical. Absent : calf tenderness, cyanotic, pedal edema - Neurological Exam Neurological exam: Present: alert, CN II-XII intact, oriented X3, no focal deficits. Absent: pronater drift, facial droop, speech deficit - Skin Skin exam: Present: dry, intact - Assessment and plan (1) Acute on chronic congestive heart failure Current Visit: Yes Status: Acute Assessment and plan: Furosemide, increased home dose to 40 mg daily Oxygen to keep sats gt 92% Cardiac monitoring Monitor daily labs Qualifiers: Qualified Code(s): I50.33 - Acute on chronic diastolic (congestive) heart failure (2) Acute exacerbation of chronic obstructive airways disease Current Visit: No Status: Acute Assessment and plan: Bronchodilators scheduled q4h Oxygen to keep sats gt 92% Oral prednisone (3) CAD (coronary artery disease) Current Visit: No Status: Chronic Assessment and plan: EF of 35% Cardiac monitoring Qualifiers: Coronary Disease-Associated Artery/Lesion type: lummi artery [place] vs. transplanted heart: lummi heart Associated angina: without angina Qualified Code(s): I25.10 - Atherosclerotic heart disease of lum[place] coronary artery without angina pectoris (4) Diabetes Current Visit: No Status: Chronic Assessment and plan: Controlled, Blood glucose at [facility] was 153 Goal is under 200, while inpatient Last HGA1C was 01/2017-result 5.9 Accucheck ac/hs with mild coverage-humalog Monitor daily labs Qualifiers: Diabetes mellitus type: type 2 Diabetes mellitus complication status: without complication Qualified Code(s): E11.9 - Type 2 diabetes mellitus without complications (5) Hypertension Current Visit: No Status: Chronic Assessment and plan: Bp is uncontrolled, patient indicated she missed her meds this am d/t sob Will resume home medications Goal is under 140/80 Qualifiers: Hypertension type: essential hypertension Qualified Code(s): I10 - Essential (primary) hypertension - Time Spent With Patient Total time spent is greater than 50% in coordination of care (as documented) at patient's floor/unit and/or counseling patient: 25 - 35 minutes <Ivan Muse - Last Filed: 08/08/17 13:08> Date of Encounter: 08/08/17 Time of Encounter: 11:45 Internal Medicine - H&P: HPI History of present illness: Ms. Jurado is a 77 year old female All Systems PM: A 10-system review of systems was performed and is negative for pertinent findings except as documented above in the HPI. - Constitutional Vitals: Temp Pulse Resp BP Pulse Ox 97.4 F L 77 21 172/82 99 08/08/17 10:41 08/08/17 10:41 08/08/17 10:41 08/08/17 10:41 08/08/17 10:41 - Attending Attestation I examined this patient and my medical decision-making was reviewed with the Nurse Practitioner, Yulisa Zamudio. I agree with the documented findings, disposition and treatment plan as described with any changes as documented below. 77-year-old female patient with history of COPD, congestive heart failure, cardiomyopathy, chronic respiratory failure who presented to the ER with complaints of shortness of breath that began this morning. Symptoms have been progressively worsening. In the ER at [facility], she had refused steroids and bronchodilators. She is concerned that steroids make her blood sugars go up and she would require insulin at home. After discussing her concerns, she has agreed to take oral steroids and inhaled bronchodilators that do not contain steroids. She denies any chest pain or palpitations. Denies any pedal edema. Chest x-ray shows cardiomegaly. Labs show hypercapnia in her ABG with compensated metabolic alkalosis. [place] 4092 which appears to be close to her baseline. 2-D echocardiogram done in 2017 showed EF of 35%. Acute exacerbation of COPD: Patient presenting with COPD exacerbation. Will treat with oral steroids. Bronchodilators. Chronic combined congestive heart failure: Patient's EF is 35%. Patient had previously refused AICD placement and is currently on sotalol. continue Lasix Diabetes mellitus type 2: Monitor blood sugars closely. Place on sliding scale insulin. Will increase insulin regimen based on blood sugars. Essential hypertension: Uncontrolled. Will place her back on her home medications. Monitor blood pressure closely. DVT prophylaxis with subcutaneous heparin - Assessment and plan (1) Acute exacerbation of chronic obstructive airways disease Current Visit: Yes Status: Acute (2) Acute on chronic congestive heart failure Current Visit: Yes Status: Acute Qualifiers: Qualified Code(s): I50.33 - Acute on chronic diastolic (congestive) heart failure (3) Chronic respiratory failure with hypoxia Current Visit: Yes Status: Acute (4) Cardiomyopathy Current Visit: Yes Status: Acute Qualifiers: Cardiomyopathy type: ischemic Qualified Code(s): I25.5 - Ischemic cardiomyopathy (5) CAD (coronary artery disease) Current Visit: Yes Status: Chronic Qualifiers: Coronary Disease-Associated Artery/Lesion type: lummi artery [place] vs. transplanted heart: lummi heart Associated angina: without angina Qualified Code(s): I25.10 - Atherosclerotic heart disease of lummi coronary artery without angina pectoris (6) Diabetes Current Visit: Yes Status: Chronic Qualifiers: Diabetes mellitus type: type 2 Diabetes mellitus complication status: without complication Qualified Code(s): E11.9 - Type 2 diabetes mellitus without complications (7) Hypertension Current Visit: Yes Status: Chronic Qualifiers: Hypertension type: essential hypertension Qualified Code(s): I10 - Essential (primary) hypertension - Time Spent With Patient Total time spent is greater than 50% in coordination of care (as documented) at patient's floor/unit and/or counseling patient:
[2017-08-08] MEDS ORDERED: *HR* Dextrose 50 % in Water (Syg) 50 ML SYRINGE IVP PRN (12:36)
[2017-08-08] MEDS ORDERED: Dextrose Gel 15 GM/37.5 ML TUBE PO PRN ×2 (12:36)
[2017-08-08] MEDS ORDERED: Furosemide 40 MG/4 ML VIAL IVP SCH (13:15)
[2017-08-08] MEDS: Cholecalciferol (D-3) 1,000 UNIT TABLET PO SCH (13:35)
[2017-08-08] MEDS: predniSONE 20 MG TABLET PO SCH (13:35)
[2017-08-08] MEDS: Metoprolol XL (24 HR) Succ 25 MG TAB.ER.24H PO SCH (13:35)
[2017-08-08] MEDS: hydrALAZINE 25 MG TABLET PO SCH ×2 (13:35→20:25)
[2017-08-08] MEDS: Aspirin Enteric Coated 81 MG Tablet PO SCH (13:35)
[2017-08-08] MEDS: *HR* LORazepam 0.5 MG TABLET PO PRN ×2 (13:37→23:21)
[2017-08-08] MEDS: Ipratropium Neb 0.5 MG NEBULIZER IH SCH ×5 (13:47→23:33)
[2017-08-08] MEDS: Levalbuterol Neb 1.25 MG/3 ML IH SCH ×4 (13:47→23:33)
[2017-08-08] MEDS: Insulin LISPRO 300 UNITS/3 ML VIAL SQ SCH ×2 (18:19→20:34)
[2017-08-08] MEDS: *HR* Heparin 5,000 UNIT/ML VIAL SQ SCH (18:19)
[2017-08-08] MEDS: (Formoterol Fumarate [Perforomist] 20 MCG) IH SCH (20:27)
[2017-08-08 22:28] LABS: BUN/Creatinine Ratio 20 (6-26); Blood Urea Nitrogen 17 mg/dL (8-23); Calcium 9.8 mg/dL (8.6-10.3); Carbon Dioxide 39 mEq/L (23-29); Chloride 83 mEq/L (98-107); Glucose 120 mg/dL (70-105); Osmolality,Calculated 269 (280-300); Sodium 128 mEq/L (136-145); eGFR For African Americans > 60 (> 60); eGFR For Non-African Americans > 60 (> 60)
[2017-08-08] MEDS ORDERED: Saline Nasal Spray 44 ML BOTTLE NS PRN (23:16)
[2017-08-09] MEDS: Ipratropium Neb 0.5 MG NEBULIZER IH SCH ×6 (03:43→23:35)
[2017-08-09] MEDS: Levalbuterol Neb 1.25 MG/3 ML IH SCH ×6 (03:43→23:35)
[2017-08-09 04:08] LABS: Basophils % 0.3 %; Eosinophils % 0.3 %; Hematocrit 32.7 % (35.3-44.9); Hemoglobin 10.8 g/dL (11.5-15.4); Immature Granulocytes % 0.3 % (0-4); Lymphocytes # 0.9 K/mcL (0.6-4.6); Lymphocytes % 22.6 %; Mean Corpuscular Hemoglobin 32.2 pg (28.0-33.3); Mean Corpuscular Volume 97.6 fL (83.0-100.0); Mean Platelet Volume 9.3 fL (9.4-12.4); Monocytes # 0.5 K/mcL (0.0-1.3); Monocytes % 13.5 %; Neutrophils # 2.5 K/mcL (1.6-8.9); Platelet Count 171 K/mcL (140-400); Red Blood Count 3.35 M/mcL (3.82-4.97); Red Cell Distribution Width 11.8 % (11.5-14.5)
[2017-08-09 04:35] LABS: BUN/Creatinine Ratio 30 (6-26); Blood Urea Nitrogen 18 mg/dL (8-23); Calcium 9.1 mg/dL (8.6-10.3); Carbon Dioxide 38 mEq/L (23-29); Chloride 86 mEq/L (98-107); Glucose 129 mg/dL (70-105); Osmolality,Calculated 268 (280-300); Potassium 4.6 mEq/L (3.5-5.1); Sodium 127 mEq/L (136-145); Troponin I 0.03 ng/mL (< 0.04); eGFR For African Americans > 60 (> 60); eGFR For Non-African Americans > 60 (> 60)
[2017-08-09] MEDS: *HR* Heparin 5,000 UNIT/ML VIAL SQ SCH ×2 (05:59→18:01)
[2017-08-09] MEDS: Insulin LISPRO 300 UNITS/3 ML VIAL SQ SCH ×4 (07:08→22:15)
[2017-08-09] MEDS: (Formoterol Fumarate [Perforomist] 20 MCG) IH SCH ×2 (09:53→22:37)
[2017-08-09] MEDS: Loratadine 10 MG TABLET PO SCH (09:57)
[2017-08-09] MEDS: predniSONE 20 MG TABLET PO SCH (09:57)
[2017-08-09] MEDS: Furosemide 40 MG/4 ML VIAL IVP SCH ×2 (09:57→17:59)
[2017-08-09] MEDS: Cholecalciferol (D-3) 1,000 UNIT TABLET PO SCH (09:57)
[2017-08-09] MEDS: Metoprolol XL (24 HR) Succ 25 MG TAB.ER.24H PO SCH (09:57)
[2017-08-09] MEDS: Multivit/Ca/Min/Fe/FA 1 TAB TABLET PO SCH (09:58)
[2017-08-09] MEDS: hydrALAZINE 25 MG TABLET PO SCH ×2 (09:58→22:13)
[2017-08-09] MEDS: Aspirin Enteric Coated 81 MG Tablet PO SCH (09:58)
--- NOTE | 2017-08-09 16:20 | Internal Med Progress Note ---
<Wilfred Locke - Last Filed: 08/09/17 16:36> Date of Encounter: 08/09/17 Time of Encounter: 09:40 - Assessment and plan (1) CAD (coronary artery disease) Current Visit: Yes Status: Chronic Assessment and plan: EF of 35% continue home meds Qualifiers: Coronary Disease-Associated Artery/Lesion type: [place] artery [place] vs. transplanted heart: [place] heart Associated angina: without angina Qualified Code(s): I25.10 - Atherosclerotic heart disease of [place] coronary artery without angina pectoris (2) Hypertension Current Visit: Yes Status: Chronic Assessment and plan: Now normotensive on BB, hydralazine, and diuresis monitoring Qualifiers: Hypertension type: essential hypertension Qualified Code(s): I10 - Essential (primary) hypertension (3) Diabetes Current Visit: Yes Status: Chronic Assessment and plan: On SSI low dose Qualifiers: Diabetes mellitus type: type 2 Diabetes mellitus oil heaterman insulin use: unspecified oil heaterman insulin use status Diabetes mellitus complication status : without complication Qualified Code(s): E11.9 - Type 2 diabetes mellitus without complications (4) Acute exacerbation of chronic obstructive airways disease Current Visit: Yes Status: Suspected Assessment and plan: Suspected minor component CXR shows emphysematous changes, no infiltrate duonebs q4h O2 titration Discontinuing steroids (5) Chronic respiratory failure with hypoxia Current Visit: Yes Status: Acute Assessment and plan: MDM as above (acute exac COPD) (6) CHF exacerbation Current Visit: Yes Status: Acute Assessment and plan: Echo late 2016 shows EF 35%; on Sotalol, Diuretics, ARB Plan: Cont Telemetry Titrating saturation to 90-93% Lasix 40mg IV BID Qualifiers: Heart failure type: unspecified Qualified Code(s): I50.9 - Heart failure, unspecified - Time Spent With Patient Total time spent is greater than 50% in coordination of care (as documented) at patient's floor/unit and/or counseling patient: - Subjective Interval history: Patient tolerating nasal cannula, denies dyspnea, no chest pain, no acute events overnight. - Constitutional Vitals: Temp Pulse Resp BP Pulse Ox 97.8 F 72 22 135/64 99 08/09/17 15:06 08/09/17 15:06 08/09/17 15:55 08/09/17 15:06 06/29/18 15:55 General appearance: Present: cooperative, A&O X 3, answers questions appropriately - Head Head exam: Present: atraumatic, normocephalic - Eye Eye exam: Present: PERRL, conjuntiva pink, sclera anicteric Pupils: Present: PERRL - Neck Neck exam general surgery: Present: supple, trachea midline. Absent: lymphadenopathy - Respiratory Respiratory exam: Present: decreased breath sounds, rhonchi. Absent: accessory muscle use, rales, wheezes - Cardiovascular Cardiovascular exam: Present: RRR, +S1, +S2. Absent: diastolic murmur, gallop, JVD, rubs, systolic murmur - GI/Abdominal GI/Abdominal exam: Present: normal bowel sounds, soft, no peritoneal signs. Absent: distended, tenderness - Extremities Exam Extremities exam: Present: warm, radial pulses palpable and symmetrical. Absent : calf tenderness, cyanotic, pedal edema Additional comments: intermittent pain, no pain on calf palpation, ankledorsiflexion - Neurological Exam Neurological exam: Present: CN II-XII intact, oriented X3, no focal deficits. Absent: pronater drift, facial droop, speech deficit - Skin Skin exam: Present: dry, intact Internal Medicine: Result - Labs CBC & Chem 7: 08/09/17 03:54 08/09/17 03:54 Labs: Short CBC 08/09/17 Range/Units 03:54 WBC 4.0 L (4.3-11.1) K/mcL Hgb 10.8 L (11.5-15.4) g/dL Hct 32.7 L (35.3-44.9) % Plt Count 171 (140-400) K/mcL Neutrophils # 2.5 (1.6-8.9) K/mcL BMP 08/08/17 08/09/17 21:57 03:54 Sodium 128 L 127 L Potassium 5.0 4.6 Chloride 83 L 86 L Carbon Dioxide 39 H 38 H BUN 17 18 Creatinine 0.84 0.61 Glucose 120 H 129 H Calcium 9.8 9.1 Cardiac Enzymes 08/09/17 Range/Units 03:54 Troponin I 0.03 (< 0.04) ng/mL - VTE Documentation of Mechanical Device: Intermittent pneumatic compression device Consult Discharge Plan - Plan Referrals: Valerie Hayes MD [Primary Care Provider] - <Dipak Urena - Last Filed: 08/09/17 16:41> Date of Encounter: 08/09/17 - Assessment and plan (1) CAD (coronary artery disease) Current Visit: Yes Status: Chronic Qualifiers: Coronary Disease-Associated Artery/Lesion type: [place] artery [place] vs. transplanted heart: [place] heart Associated angina: without angina Qualified Code(s): I25.10 - Atherosclerotic heart disease of [place] coronary artery without angina pectoris (2) Hypertension Current Visit: Yes Status: Chronic Qualifiers: Hypertension type: essential hypertension Qualified Code(s): I10 - Essential (primary) hypertension (3) Diabetes Current Visit: Yes Status: Chronic Qualifiers: Diabetes mellitus type: type 2 Diabetes mellitus usp insulin use: unspecified oil heaterman insulin use status Diabetes mellitus complication status : without complication Qualified Code(s): E11.9 - Type 2 diabetes mellitus without complications (4) Acute exacerbation of chronic obstructive airways disease Current Visit: Yes Status: Suspected (5) Chronic respiratory failure with hypoxia Current Visit: Yes Status: Acute (6) CHF exacerbation Current Visit: Yes Status: Acute Qualifiers: Heart failure type: unspecified Qualified Code(s): I50.9 - Heart failure, unspecified - Time Spent With Patient Total time spent is greater than 50% in coordination of care (as documented) at patient's floor/unit and/or counseling patient: - Constitutional Vitals: Temp Pulse Resp BP Pulse Ox 97.8 F 72 22 135/64 99 08/09/17 15:06 08/09/17 15:06 08/09/17 15:55 08/09/17 15:06 08/09/17 15:55 Internal Medicine: Result - Labs CBC & Chem 7: 08/09/17 03:54 08/09/17 03:54 Labs: Short CBC 08/09/17 Range/Units 03:54 WBC 4.0 L (4.3-11.1) K/mcL Hgb 10.8 L (11.5-15.4) g/dL Hct 32.7 L (35.3-44.9) % Plt Count 171 (140-400) K/mcL Neutrophils # 2.5 (1.6-8.9) K/mcL BMP 08/08/17 08/09/17 21:57 03:54 Sodium 128 L 127 L Potassium 5.0 4.6 Chloride 83 L 86 L Carbon Dioxide 39 H 38 H BUN 17 18 Creatinine 0.84 0.61 Glucose 120 H 129 H Calcium 9.8 9.1 Cardiac Enzymes 08/09/ Range/Units 03:54 Troponin I 0.03 (< 0.04) ng/mL - Attending Attestation I performed an independent interview and examine of this patient. I discussed the case with Dr. Locke, internal medicine resident and examined the patient along with him as well. I am in agreement with his findings, assessment and plan as outlined above, and my input is reflected in his note. Patient admitted with acute on chronic systolic congestive heart failure. She is responding to IV Lasix and this will be continued as long as renal function allows. I do not see any obvious COPD exacerbation and therefore steroids have been held. No evidence of infection. We will continue to closely monitor. Gen: Awake alert and oriented 3, mild dyspnea Skin warm and dry Neck is supple Lungs show faint crackles at the bases bilaterally Heart regular rate and rhythm Extremities trace edema
[2017-08-09] MEDS ORDERED: tiZANidine 4 MG TABLET PO PRN (17:19)
[2017-08-10] MEDS: Ipratropium Neb 0.5 MG NEBULIZER IH SCH ×6 (03:28→23:17)
[2017-08-10] MEDS: Levalbuterol Neb 1.25 MG/3 ML IH SCH ×6 (03:28→23:17)
[2017-08-10] MEDS: *HR* Heparin 5,000 UNIT/ML VIAL SQ SCH ×2 (05:39→18:03)
[2017-08-10 06:20] LABS: Basophils % 0.1 %; Eosinophils # 0.1 K/mcL (0.0-0.6); Eosinophils % 0.6 %; Hematocrit 36.5 % (35.3-44.9); Hemoglobin 11.9 g/dL (11.5-15.4); Immature Granulocytes % 0.4 % (0-4); Lymphocytes # 1.4 K/mcL (0.6-4.6); Lymphocytes % 17.4 %; Mean Corpuscular HGB Conc 32.6 g/dL (31.6-35.5); Mean Corpuscular Hemoglobin 33.1 pg (28.0-33.3); Mean Corpuscular Volume 101.4 fL (83.0-100.0); Mean Platelet Volume 9.7 fL (9.4-12.4); Monocytes # 1.1 K/mcL (0.0-1.3); Monocytes % 13.4 %; Neutrophils # 5.5 K/mcL (1.6-8.9); Platelet Count 185 K/mcL (140-400); Red Cell Distribution Width 11.9 % (11.5-14.5); Segmented Neutrophils % 68.1 %
[2017-08-10 06:51] LABS: BUN/Creatinine Ratio 34 (6-26); Blood Urea Nitrogen 26 mg/dL (8-23); Calcium 9.5 mg/dL (8.6-10.3); Carbon Dioxide 45 mEq/L (23-29); Chloride 83 mEq/L (98-107); Glucose 112 mg/dL (70-105); Osmolality,Calculated 278 (280-300); Potassium 4.3 mEq/L (3.5-5.1); Sodium 131 mEq/L (136-145); eGFR For African Americans > 60 (> 60); eGFR For Non-African Americans > 60 (> 60)
[2017-08-10] MEDS: Insulin LISPRO 300 UNITS/3 ML VIAL SQ SCH ×4 (09:56→20:49)
[2017-08-10] MEDS: Furosemide 40 MG/4 ML VIAL IVP SCH ×2 (09:56→18:04)
[2017-08-10] MEDS: Aspirin Enteric Coated 81 MG Tablet PO SCH (09:58)
[2017-08-10] MEDS: Loratadine 10 MG TABLET PO SCH (09:58)
[2017-08-10] MEDS: Multivit/Ca/Min/Fe/FA 1 TAB TABLET PO SCH (09:58)
[2017-08-10] MEDS: Metoprolol XL (24 HR) Succ 25 MG TAB.ER.24H PO SCH (09:58)
[2017-08-10] MEDS: Cholecalciferol (D-3) 1,000 UNIT TABLET PO SCH (09:58)
[2017-08-10] MEDS: hydrALAZINE 25 MG TABLET PO SCH ×2 (09:58→20:48)
[2017-08-10] MEDS: (Formoterol Fumarate [Perforomist] 20 MCG) IH SCH ×2 (10:13→21:23)
--- NOTE | 2017-08-10 13:24 | Internal Med Progress Note ---
<Wilfred Locke - Last Filed: 08/10/17 13:54> Date of Encounter: 08/10/17 Time of Encounter: 08:00 - Assessment and plan (1) CAD (coronary artery disease) Current Visit: Yes Status: Chronic Assessment and plan: EF of 35% continue home meds Qualifiers: Coronary Disease-Associated Artery/Lesion type: [place] artery [place] vs. transplanted heart: blackfeet heart Associated angina: without angina Qualified Code(s): I25.10 - Atherosclerotic heart disease of [place] coronary artery without angina pectoris (2) Hypertension Current Visit: Yes Status: Chronic Assessment and plan: Now normotensive on BB, hydralazine, and diuresis monitoring Qualifiers: Hypertension type: essential hypertension Qualified Code(s): I10 - Essential (primary) hypertension (3) Diabetes Current Visit: Yes Status: Chronic Assessment and plan: On SSI low dose; averaging 120s Qualifiers: Diabetes mellitus type: type 2 Diabetes mellitus correction insulin use: unspecified terminal operations supervisor insulin use status Diabetes mellitus complication status : without complication Qualified Code(s): E11.9 - Type 2 diabetes mellitus without complications (4) Acute exacerbation of chronic obstructive airways disease Current Visit: Yes Status: Suspected Assessment and plan: Suspected minor component CXR shows emphysematous changes, no infiltrate duonebs q4h O2 titration (5) Chronic respiratory failure with hypoxia Current Visit: Yes Status: Acute Assessment and plan: MDM as above (acute exac COPD) (6) CHF exacerbation Current Visit: Yes Status: Acute Assessment and plan: Echo late 2016 shows EF 35%; on Sotalol, Diuretics, ARB Plan: Cont Telemetry Cont Titrating saturation to 90-93% Cont Lasix 40mg IV BID monitoring urine output and fluid intake Qualifiers: Heart failure type: unspecified Qualified Code(s): I50.9 - Heart failure, unspecified - Time Spent With Patient Total time spent is greater than 50% in coordination of care (as documented) at patient's floor/unit and/or counseling patient: - Subjective Interval history: Continues to have improved breathing, patient has bedside commode with measuring basin, has measuring cup, good urine output per .5cc/kg/hr measurements, monitoring I/Os, bun/creat, patient's leg spasms yesterday resolved - Constitutional Vitals: Temp Pulse Resp BP Pulse Ox 97.8 F 64 16 130/70 98 08/10/17 07:54 08/10/17 07:54 08/10/17 10:14 08/10/17 07:54 08/10/17 10:14 General appearance: Present: cooperative, A&O X 3, answers questions appropriately - Head Head exam: Present: atraumatic, normocephalic - Eye Eye exam: Present: PERRL, conjuntiva pink, sclera anicteric Pupils: Present: PERRL - Neck Neck exam general surgery: Present: supple, trachea midline. Absent: lymphadenopathy - Respiratory Respiratory exam: Present: CTAB. Absent: accessory muscle use, rales, rhonchi, wheezes - Cardiovascular Cardiovascular exam: Present: RRR, +S1, +S2. Absent: diastolic murmur, gallop, rubs, systolic murmur - GI/Abdominal GI/Abdominal exam: Present: normal bowel sounds, soft, no peritoneal signs. Absent: distended, tenderness - Extremities Exam Extremities exam: Present: warm, radial pulses palpable and symmetrical. Absent : calf tenderness, cyanotic, pedal edema Additional comments: non-tender LLE, no spasms observed today - Neurological Exam Neurological exam: Present: CN II-XII intact, oriented X3, no focal deficits. Absent: pronater drift, facial droop, speech deficit - Skin Skin exam: Present: dry, intact Internal Medicine: Result - Labs CBC & Chem 7: 08/10/17 05:48 08/10/17 05:48 Labs: Short CBC 08/10/17 Range/Units 05:48 WBC 8.1 D (4.3-11.1) K/mcL Hgb 11.9 (11.5-15.4) g/dL Hct 36.5 (35.3-44.9) % Plt Count 185 (140-400) K/mcL Neutrophils # 5.5 (1.6-8.9) K/mcL BMP 08/10/17 05:48 Sodium 131 L Potassium 4.3 Chloride 83 L Carbon Dioxide 45 H* BUN 26 H Creatinine 0.76 Glucose 112 H Calcium 9.5 - VTE Documentation of Mechanical Device: Intermittent pneumatic compression device Consult Discharge Plan - Plan Referrals: Valerie Hayes MD [Primary Care Provider] - <Dipak Urena - Last Filed: 08/10/17 14:23> Date of Encounter: 08/10/17 - Assessment and plan (1) CAD (coronary artery disease) Current Visit: Yes Status: Chronic Qualifiers: Coronary Disease-Associated Artery/Lesion type: [place] artery [place] vs. transplanted heart: blackfeet heart Associated angina: without angina Qualified Code(s): I25.10 - Atherosclerotic heart disease of [place] coronary artery without angina pectoris (2) Hypertension Current Visit: Yes Status: Chronic Qualifiers: Hypertension type: essential hypertension Qualified Code(s): I10 - Essential (primary) hypertension (3) Diabetes Current Visit: Yes Status: Chronic Qualifiers: Diabetes mellitus type: type 2 Diabetes mellitus terminal operations supervisor insulin use: unspecified terminal operations supervisor insulin use status Diabetes mellitus complication status : without complication Qualified Code(s): E11.9 - Type 2 diabetes mellitus without complications (4) Acute exacerbation of chronic obstructive airways disease Current Visit: Yes Status: Suspected (5) Chronic respiratory failure with hypoxia Current Visit: Yes Status: Acute (6) CHF exacerbation Current Visit: Yes Status: Acute Qualifiers: Heart failure type: unspecified Qualified Code(s): I50.9 - Heart failure, unspecified - Time Spent With Patient Total time spent is greater than 50% in coordination of care (as documented) at patient's floor/unit and/or counseling patient: - Constitutional Vitals: Temp Pulse Resp BP Pulse Ox 97.8 F 64 16 130/70 98 08/10/17 07:54 08/10/17 07:54 08/10/17 10:14 08/10/17 07:54 08/10/17 10:14 Internal Medicine: Result - Labs CBC & Chem 7: 08/10/17 05:48 08/10/17 05:48 Labs: Short CBC 08/10/17 Range/Units 05:48 WBC 8.1 D (4.3-11.1) K/mcL Hgb 11.9 (11.5-15.4) g/dL Hct 36.5 (35.3-44.9) % Plt Count 185 (140-400) K/mcL Neutrophils # 5.5 (1.6-8.9) K/mcL BMP 08/10/17 05:48 Sodium 131 L Potassium 4.3 Chloride 83 L Carbon Dioxide 45 H* BUN 26 H Creatinine 0.76 Glucose 112 H Calcium 9.5 - Attending Attestation I personally interviewed and examined this patient. I agree with the findings, assessment, and plan of Dr. Locke, internal medicine resident. Her old female with acute on chronic systolic CHF, with a known EF of 35% by echocardiogram in December 2016. Patient has diuresed approximately 4.5 L thus far. Continue with IV Lasix 40 mg twice a day as long as renal function allows. Toprol 12.5 mg by mouth daily Cozaar 100 mg po QHS Hydralazine 50 mg po BID Sotalol 80 mg po BID Patient continues to improve. Still needs IV Lasix for an additional day. Exam: Gen: AAOx3, mild dyspnea Skin: Warm and dry Neck: Supple, no JVD Lungs: Faint basilar crackles Ht: RRR Abd: Soft + BS, NT Ext: trace edema Neuro: Nonfocal
[2017-08-10] MEDS: *HR* LORazepam 0.5 MG TABLET PO PRN (21:58)
[2017-08-11] MEDS: Ipratropium Neb 0.5 MG NEBULIZER IH SCH ×6 (03:47→23:36)
[2017-08-11] MEDS: Levalbuterol Neb 1.25 MG/3 ML IH SCH ×6 (03:47→23:35)
[2017-08-11] MEDS: *HR* Heparin 5,000 UNIT/ML VIAL SQ SCH ×2 (06:03→18:22)
[2017-08-11 06:23] LABS: Basophils % 0.1 %; Eosinophils # 0.1 K/mcL (0.0-0.6); Eosinophils % 0.8 %; Hematocrit 35.6 % (35.3-44.9); Hemoglobin 11.6 g/dL (11.5-15.4); Immature Granulocytes % 0.4 % (0-4); Lymphocytes # 1.3 K/mcL (0.6-4.6); Lymphocytes % 15.6 %; Mean Corpuscular HGB Conc 32.6 g/dL (31.6-35.5); Mean Corpuscular Hemoglobin 32.4 pg (28.0-33.3); Mean Corpuscular Volume 99.4 fL (83.0-100.0); Mean Platelet Volume 9.3 fL (9.4-12.4); Monocytes % 11.5 %; Neutrophils # 6.1 K/mcL (1.6-8.9); Platelet Count 190 K/mcL (140-400); Red Blood Count 3.58 M/mcL (3.82-4.97); Segmented Neutrophils % 71.6 %
[2017-08-11 06:47] LABS: BUN/Creatinine Ratio 46 (6-26); Blood Urea Nitrogen 37 mg/dL (8-23); Calcium 9.3 mg/dL (8.6-10.3); Carbon Dioxide 41 mEq/L (23-29); Chloride 88 mEq/L (98-107); Glucose 145 mg/dL (70-105); Osmolality,Calculated 289 (280-300); Sodium 134 mEq/L (136-145); eGFR For African Americans > 60 (> 60); eGFR For Non-African Americans > 60 (> 60)
[2017-08-11] MEDS: Insulin LISPRO 300 UNITS/3 ML VIAL SQ SCH ×4 (09:03→21:22)
[2017-08-11] MEDS: Furosemide 40 MG/4 ML VIAL IVP SCH (09:05)
[2017-08-11] MEDS: hydrALAZINE 25 MG TABLET PO SCH ×2 (09:06→21:24)
[2017-08-11] MEDS: Aspirin Enteric Coated 81 MG Tablet PO SCH (09:06)
[2017-08-11] MEDS: Cholecalciferol (D-3) 1,000 UNIT TABLET PO SCH (09:07)
[2017-08-11] MEDS: Loratadine 10 MG TABLET PO SCH (09:07)
[2017-08-11] MEDS: Metoprolol XL (24 HR) Succ 25 MG TAB.ER.24H PO SCH (09:07)
[2017-08-11] MEDS: Multivit/Ca/Min/Fe/FA 1 TAB TABLET PO SCH (09:08)
[2017-08-11] MEDS: (Formoterol Fumarate [Perforomist] 20 MCG) IH SCH ×2 (10:40→22:12)
--- NOTE | 2017-08-11 14:20 | Discharge Summary ---
<Wilfred Locke - Last Filed: 08/11/17 14:32> - NOTES TO OUTPATIENT PROVIDER Notes to Outpatient Provider: Patient's Lasix has been increased to 40mg PO BID for the time-being, reviewed with patient measuring fluid intake, daily weights , salt restriction Date of Encounter: 08/11/17 Time of Encounter: 08:45 - Discharge Diagnosis (1) CAD (coronary artery disease) Priority: Secondary Status: Chronic Qualifiers: Coronary Disease-Associated Artery/Lesion type: [place] artery [place] vs. transplanted heart: [place] heart Associated angina: without angina Qualified Code(s): I25.10 - Atherosclerotic heart disease of [place] coronary artery without angina pectoris (2) Hypertension Priority: Secondary Status: Chronic Qualifiers: Hypertension type: essential hypertension Qualified Code(s): I10 - Essential (primary) hypertension (3) Diabetes Priority: Secondary Status: Chronic Qualifiers: Diabetes mellitus type: type 2 Diabetes mellitus longterm insulin use: unspecified longterm insulin use status Diabetes mellitus complication status : without complication Qualified Code(s): E11.9 - Type 2 diabetes mellitus without complications (4) Acute exacerbation of chronic obstructive airways disease Priority: Secondary Status: Suspected (5) Chronic respiratory failure with hypoxia Priority: Secondary Status: Acute (6) CHF exacerbation Priority: Primary Status: Acute Qualifiers: Heart failure type: unspecified Qualified Code(s): I50.9 - Heart failure, unspecified Hospital course: Ms. Jurado is a 77 year old female with hx of copd on 2L home o2, HF, CAD, DM2 , HLD, HTN, who was admitted 08/08 for CHF exacerbation. Patient's BNP found to be elevated at 1492, patient was treated with IV lasix, fluid restricted, strict I/Os, respiratory therapy. She was given instruction regarding diuretic/ fluid management and daily wt tracking. Today she is saturating well on at baseline o2 needs, she will be discharged with an increased dose of Lasix with follow-up with her PCP in approx 1 week. - Time Spent with Patient Total time spent providing and/or coordinating discharge services: Greater than 30 minutes - Discharge Medications Prescriptions: Furosemide [Lasix] 40 mg PO BID #60 tablet Home Medications: Aspirin Enteric Coated [Aspirin EC] 81 mg PO DAILY 01/11/15 [History] Calcium Carbonate/Vitamin D3 [Calcium 600-Vit D3 800 Tablet] 1 each PO DAILY 02/25 [History] Clopidogrel [Plavix] 75 mg PO DAILY 01/11/15 [History] HydrALAZINE 50 mg PO BID 01/11/15 [History] Levalbuterol Neb [Xopenex Neb] 1.25 mg IH Q4HR 01/11/15 [History] Loratadine [Claritin] 10 mg PO DAILY 01/11/15 [History] Losartan [Cozaar] 100 mg PO DAILY 01/11/15 [History] Multivitamin [Multi-Day Vitamins] 1 each PO DAILY 01/11/15 [History] Nitroglycerin [Nitrostat] 0.4 mg SL AD PRN 01/11/15 [History] Pravastatin Sodium [Pravachol] 40 mg PO DAILY 01/11/15 [History] Sotalol [Betapace] 80 mg PO Q12HR 01/11/15 [History] LORazepam [Ativan] 0.5 mg PO BID 09/12/15 [History] Metoprolol XL (24 HR) Succ [Toprol Xl] 12.5 mg PO DAILY 09/12/15 [History] Oxygen 2 l NS CONT 09/12/15 [History] GuaiFENesin ER [Mucinex] 600 mg PO BID PRN #20 tbbp.12hr 09/15/15 [Rx] Formoterol Fumarate [Perforomist] 20 mcg IH BID 02/07/16 [History] Acetaminophen [Tylenol] 1,000 mg PO TID 08/08/17 [History] Furosemide [Lasix] 40 mg PO BID #60 tablet 08/11/17 [Rx] Allergies/Adverse Reactions: 3 Allergy/AdvReac Type Severity Reaction Status Date / Time ASIM Inhibitors Allergy See Verified 08/08/17 05:22 Comments budesonide [From Symbicort] Allergy Swelling Verified 08/08/17 05:22 of Lip/Tongue/Throat Cyclobenzaprine Allergy Anaphylaxis Verified 08/08/17 05:22 [From Flexeril] ethacrynic acid Allergy See Verified 08/08/17 05:22 [From Edecrin] Comments lisinopril [From Zestoretic] Allergy See Verified 08/08/17 05:22 Comments moxifloxacin [From Avelox] Allergy See Verified 08/08/17 05:22 Comments amlodipine [From Norvasc] AdvReac Diarrhea Verified 08/08/17 05:22 aspirin AdvReac See Verified 08/08/17 05:22 Comments azithromycin [From Zithromax] AdvReac Diarrhea Verified 08/08/17 05:22 citalopram [From Celexa] AdvReac See Verified 08/08/17 05:22 Comments fluticasone AdvReac Confusion Verified 08/08/17 05:22 [From Advair Diskus] Formoterol [From Dulera] AdvReac Muscle Pain Verified 08/08/17 05:22 gabapentin [From Neurontin] AdvReac Headache Verified 08/08/17 05:22 hydrochlorothiazide AdvReac See Verified 08/08/17 05:22 Comments levofloxacin [From Levaquin] AdvReac See Verified 08/08/17 05:22 Comments losartan [Losartan] AdvReac Diarrhea Verified 08/08/17 05:22 mometasone furoate AdvReac Muscle Pain Verified 08/08/17 05:22 [From Dulera] ofloxacin AdvReac Headache Verified 08/08/17 05:22 prednisone AdvReac See Verified 08/08/17 05:22 Comments rofecoxib [From Vioxx] AdvReac Nausea Verified 08/08/17 05:22 salmeterol AdvReac Confusion Verified 08/08/17 05:22 [From Advair Diskus] Serotonin 5HT-3 Antagonists AdvReac See Verified 08/08/17 05:22 Comments Sulfa (Sulfonamide AdvReac Nausea Verified 08/08/17 05:22 Antibiotics) tiotropium AdvReac See Verified 08/08/17 05:22 [From Spiriva with Comments HandiHaler] tramadol AdvReac See Verified 08/08/17 05:22 Comments Date of admission: 08/08/17 11:37 Primary care physician: Valerie Hayes Consults: 08/09/17 13:13 Consult to Nurse Navigator [CONS] Routine Comment: COPD and CHF exac Discharging clinician: Wilfred Locke Anticipated date of discharge: 08/11/17 - Constitutional Vitals: Temp Pulse Resp BP Pulse Ox 98.3 F 72 17 109/63 94 08/11/17 07:48 08/11/17 07:48 08/11/17 07:48 08/11/17 07:48 08/11/17 07:48 General appearance: Present: cooperative, A&O X 3, answers questions appropriately - Head Head exam: Present: atraumatic, normocephalic - Eye Eye exam: Present: PERRL, conjuntiva pink, sclera anicteric Pupils: Present: PERRL - Neck Neck exam general surgery: Present: supple, trachea midline. Absent: lymphadenopathy - Respiratory Respiratory exam: Present: decreased breath sounds. Absent: accessory muscle use, rales, rhonchi, wheezes - Cardiovascular Cardiovascular exam: Present: RRR, +S1, +S2. Absent: diastolic murmur, gallop, rubs, systolic murmur - GI/Abdominal GI/Abdominal exam: Present: normal bowel sounds, soft, no peritoneal signs. Absent: distended, tenderness - Extremities Exam Extremities exam: Present: warm, radial pulses palpable and symmetrical. Absent : calf tenderness, cyanotic, pedal edema - Neurological Exam Neurological exam: Present: CN II-XII intact, oriented X3, no focal deficits. Absent: pronater drift, facial droop, speech deficit - Skin Skin exam: Present: dry, intact - Patient Status Disposition: Home, Self-Care Condition: Good Functional capacity at discharge: independent ambulation Overall status at discharge: patient is back to baseline - Discharge Instructions Follow Up With: Valerie Hayes MD [Primary Care Provider] - - Diet and Activity Activity: increase activity as tolerated Diet: low salt diet - VTE Documentation of Mechanical Device: Intermittent pneumatic compression device <Dipak Urena - Last Filed: 08/11/17 17:27> Date of Encounter: 08/11/17 - Discharge Diagnosis (1) CAD (coronary artery disease) Status: Chronic Qualifiers: Coronary Disease-Associated Artery/Lesion type: [place] artery [place] vs. transplanted heart: [place] heart Associated angina: without angina Qualified Code(s): I25.10 - Atherosclerotic heart disease of [place] coronary artery without angina pectoris (2) Hypertension Status: Chronic Qualifiers: Hypertension type: essential hypertension Qualified Code(s): I10 - Essential (primary) hypertension (3) Diabetes Status: Chronic Qualifiers: Diabetes mellitus type: type 2 Diabetes mellitus longterm insulin use: unspecified longterm insulin use status Diabetes mellitus complication status : without complication Qualified Code(s): E11.9 - Type 2 diabetes mellitus without complications (4) Acute exacerbation of chronic obstructive airways disease Status: Suspected (5) Chronic respiratory failure with hypoxia Status: Acute (6) CHF exacerbation Status: Acute Qualifiers: Heart failure type: unspecified Qualified Code(s): I50.9 - Heart failure, unspecified Hospital course: Ms. Jurado is a 77 year old female - Time Spent with Patient Total time spent providing and/or coordinating discharge services: Date of admission: 08/08/17 11:37 Primary care physician: Valerie Hayes Consults: 08/09/17 13:13 Consult to Nurse Navigator [CONS] Routine Comment: COPD and CHF exac - Constitutional Vitals: Temp Pulse Resp BP Pulse Ox 98.3 F 72 20 109/63 91 08/11/17 07:48 08/11/17 07:48 08/11/17 15:48 08/11/17 11:57 08/11/17 15:48 - Attending Attestation I performed an independent interview and exam of this patient. I agree with the findings, assessment, and plan of Dr. Locke, internal medicine resident. Patient continues to improve. She is still mildly dyspneic and we decided to hold off on discharge today, watch her overnight on oral Lasix as a result of this. She has diuresed 8.6 L since admission. Her vitals remained stable, and she is back down to her baseline level of oxygen at 2 L per nasal cannula. All else is outlined in the discharge summary, my input is reflected in this. 41 mi spent on dc and coord of care. Ge: N AD, AAOx3 NEck supple Lungs dimin bs bases Ht RRR Ext tr edema Addendum entered and electronically signed by Wilfred Locke DO 08/11/17 15:57: Patient to stay 1 more night, stable today but to discharge in AM 7/2 for monitoring, HH referral and ambulatory Rx in chart, progress note can be written for tomorrow as discharge note/order valid for 24 hours
--- NOTE | 2017-08-11 15:52 | Physician Discharge Referral ---
Home Health/Hosp Referral Info Transfer to: Home Health - Diagnosis (1) CHF exacerbation Status: Acute (2) CAD (coronary artery disease) Status: Chronic (3) Hypertension Status: Chronic (4) Diabetes Status: Chronic (5) Acute exacerbation of chronic obstructive airways disease Status: Suspected (6) Chronic respiratory failure with hypoxia Status: Acute - Respiratory Orders Smoking Cessation: Smoking cessation has been advised. For more information, call the [place] Tobacco Quit Line at 2-023-JELN-NOW. - Services Needed Following services are medically necessary services: Home Health Aide - Transfer Medications Prescriptions: Furosemide [Lasix] 40 mg PO BID #60 tablet Home Medications: Aspirin Enteric Coated [Aspirin EC] 81 mg PO DAILY 01/11/15 [History] Calcium Carbonate/Vitamin D3 [Calcium 600-Vit D3 800 Tablet] 1 each PO DAILY 02/25 [History] Clopidogrel [Plavix] 75 mg PO DAILY 01/11/15 [History] HydrALAZINE 50 mg PO BID 01/11/15 [History] Levalbuterol Neb [Xopenex Neb] 1.25 mg IH Q4HR 01/11/15 [History] Loratadine [Claritin] 10 mg PO DAILY 01/11/15 [History] Losartan [Cozaar] 100 mg PO DAILY 01/11/15 [History] Multivitamin [Multi-Day Vitamins] 1 each PO DAILY 01/11/15 [History] Nitroglycerin [Nitrostat] 0.4 mg SL AD PRN 01/11/15 [History] Pravastatin Sodium [Pravachol] 40 mg PO DAILY 01/11/15 [History] Sotalol [Betapace] 80 mg PO Q12HR 01/11/15 [History] LORazepam [Ativan] 0.5 mg PO BID 09/12/15 [History] Metoprolol XL (24 HR) Succ [Toprol Xl] 12.5 mg PO DAILY 09/12/15 [History] Oxygen 2 l NS CONT 09/12/15 [History] GuaiFENesin ER [Mucinex] 600 mg PO BID PRN #20 tbbp.12hr 09/15/15 [Rx] Formoterol Fumarate [Perforomist] 20 mcg IH BID 02/07/16 [History] Acetaminophen [Tylenol] 1,000 mg PO TID 08/08/17 [History] Furosemide [Lasix] 40 mg PO BID #60 tablet 08/11/17 [Rx] Allergies/Adverse Reactions: 3 Allergy/AdvReac Type Severity Reaction Status Date / Time ASIM Inhibitors Allergy See Verified 08/08/17 05:22 Comments budesonide [From Symbicort] Allergy Swelling Verified 08/08/17 05:22 of Lip/Tongue/Throat Cyclobenzaprine Allergy Anaphylaxis Verified 08/08/17 05:22 [From Flexeril] ethacrynic acid Allergy See Verified 08/08/17 05:22 [From Edecrin] Comments lisinopril [From Zestoretic] Allergy See Verified 08/08/17 05:22 Comments moxifloxacin [From Avelox] Allergy See Verified 08/08/17 05:22 Comments amlodipine [From Norvasc] AdvReac Diarrhea Verified 08/08/17 05:22 aspirin AdvReac See Verified 08/08/17 05:22 Comments azithromycin [From Zithromax] AdvReac Diarrhea Verified 08/08/17 05:22 citalopram [From Celexa] AdvReac See Verified 08/08/17 05:22 Comments fluticasone AdvReac Confusion Verified 08/08/17 05:22 [From Advair Diskus] Formoterol [From Dulera] AdvReac Muscle Pain Verified 08/08/17 05:22 gabapentin [From Neurontin] AdvReac Headache Verified 08/08/17 05:22 hydrochlorothiazide AdvReac See Verified 08/08/17 05:22 Comments levofloxacin [From Levaquin] AdvReac See Verified 08/08/17 05:22 Comments losartan [Losartan] AdvReac Diarrhea Verified 08/08/17 05:22 mometasone furoate AdvReac Muscle Pain Verified 08/08/17 05:22 [From Dulera] ofloxacin AdvReac Headache Verified 08/08/17 05:22 prednisone AdvReac See Verified 08/08/17 05:22 Comments rofecoxib [From Vioxx] AdvReac Nausea Verified 08/08/17 05:22 salmeterol AdvReac Confusion Verified 08/08/17 05:22 [From Advair Diskus] Serotonin 5HT-3 Antagonists AdvReac See Verified 08/08/17 05:22 Comments Sulfa (Sulfonamide AdvReac Nausea Verified 08/08/17 05:22 Antibiotics) tiotropium AdvReac See Verified 08/08/17 05:22 [From Spiriva with Comments HandiHaler] tramadol AdvReac See Verified 08/08/17 05:22 Comments Certification: Further, I certify that my clinical findings support that this patient is homebound (i.e. absences from home require considerable and taxing effort and are for medical reasons or restoration services or infrequently or short duration when for other reasons) because: Homebound Reason: Leaving home requires considerable and taxing effort due to condition Attestation: My signature below is to certify that this patient is under my care and that I, or nurse practitioner, or a physician's medical office assistant working with me, has a face-to -face encounter with this patient.
[2017-08-11] MEDS: Furosemide 40 MG TABLET PO SCH (18:21)
[2017-08-11] MEDS: *HR* LORazepam 0.5 MG TABLET PO PRN (23:01)
[2017-08-12] MEDS: Levalbuterol Neb 1.25 MG/3 ML IH SCH ×3 (04:13→11:08)
[2017-08-12] MEDS: Ipratropium Neb 0.5 MG NEBULIZER IH SCH ×3 (04:13→11:08)
[2017-08-12] MEDS: *HR* Heparin 5,000 UNIT/ML VIAL SQ SCH (06:25)
[2017-08-12 07:17] VITALS: BP 109/52
[2017-08-12] MEDS: Insulin LISPRO 300 UNITS/3 ML VIAL SQ SCH (08:14)
[2017-08-12] MEDS: Furosemide 40 MG TABLET PO SCH (09:16)
[2017-08-12] MEDS: Multivit/Ca/Min/Fe/FA 1 TAB TABLET PO SCH (09:16)
[2017-08-12] MEDS: Cholecalciferol (D-3) 1,000 UNIT TABLET PO SCH (09:16)
[2017-08-12] MEDS: hydrALAZINE 25 MG TABLET PO SCH (09:16)
[2017-08-12] MEDS: Metoprolol XL (24 HR) Succ 25 MG TAB.ER.24H PO SCH (09:16)
[2017-08-12] MEDS: Aspirin Enteric Coated 81 MG Tablet PO SCH (09:16)
[2017-08-12] MEDS: Loratadine 10 MG TABLET PO SCH (09:17)
[2017-08-12] MEDS: (Formoterol Fumarate [Perforomist] 20 MCG) IH SCH (09:40)
--- NOTE | 2017-08-12 10:44 | Internal Med Progress Note ---
<Manjeet Luna - Last Filed: 08/12/17 10:35> Date of Encounter: 08/12/17 Time of Encounter: 08:30 - Assessment and plan (1) Acute exacerbation of chronic obstructive airways disease Status: Suspected Assessment and plan: Suspected minor component CXR shows emphysematous changes, no infiltrate duonebs q4h O2 titration (2) CAD (coronary artery disease) Status: Chronic Assessment and plan: EF of 35% continue home meds Qualifiers: Coronary Disease-Associated Artery/Lesion type: [place] artery [place] vs. transplanted heart: [place] heart Associated angina: without angina Qualified Code(s): I25.10 - Atherosclerotic heart disease of [place] coronary artery without angina pectoris (3) Hypertension Status: Chronic Assessment and plan: Now normotensive on BB, hydralazine, and diuresis monitoring Qualifiers: Hypertension type: essential hypertension Qualified Code(s): I10 - Essential (primary) hypertension (4) Diabetes Status: Chronic Assessment and plan: On SSI low dose; averaging 120s Qualifiers: Diabetes mellitus type: type 2 Diabetes mellitus unix administrator insulin use: unspecified unix administrator insulin use status Diabetes mellitus complication status : without complication Qualified Code(s): E11.9 - Type 2 diabetes mellitus without complications (5) Chronic respiratory failure with hypoxia Status: Acute Assessment and plan: MDM as above (acute exac COPD) (6) CHF exacerbation Status: Acute Assessment and plan: Echo late 2016 shows EF 35%; on Sotalol, Diuretics, ARB Plan: DC Today if possible, medically clear Continue Lasix 40mg PO Bid monitoring urine output and fluid intake Qualifiers: Heart failure type: unspecified Qualified Code(s): I50.9 - Heart failure, unspecified - Time Spent With Patient Total time spent is greater than 50% in coordination of care (as documented) at patient's floor/unit and/or counseling patient: - Subjective Interval history: Patient seen and examined at bedside. Patient has improved overnight. - Constitutional Vitals: Temp Pulse Resp BP Pulse Ox 97.9 F 63 16 109/52 94 08/12/17 07:13 08/12/17 07:13 08/12/17 09:40 08/12/17 07:13 08/12/17 09:40 General appearance: Present: cooperative, A&O X 3, answers questions appropriately Exam: Gen: Vitals noted. No acute distress. HEENT: Normocephalic, atraumatic Neck: Supple. No adenopathy. Cardiac: RRR, no murmur, +S1/S2 Pulmonary: Mild bibasilar crackles Abdomen: soft, nontender, no guarding Extremities: no BLE edema, nontender calf, no cyanosis or clubbing Neuro: moves all extremities, no focal deficits. A&Ox3 Psych: Appropriate mood and behavior Internal Medicine: Result - Labs CBC & Chem 7: 08/11/17 06:05 08/11/17 06:05 - VTE Documentation of Mechanical Device: Intermittent pneumatic compression device Consult Discharge Plan - Plan Instructions: Furosemide (By mouth), Heart Failure (DC), Acute Respiratory Distress Syndrome (DC), Diabetes Mellitus Type 2 in Adults (DC), Chronic Obstructive Pulmonary Disease (DC), Chronic Hypertension (DC) Referrals: Valerie Hayes MD [Primary Care Provider] - 08/19/17 9:30 am Prescriptions: Furosemide [Lasix] 40 mg PO BID #60 tablet <Dipak Urena - Last Filed: 08/12/17 13:18> Date of Encounter: 08/12/17 - Assessment and plan (1) CAD (coronary artery disease) Status: Chronic Qualifiers: Coronary Disease-Associated Artery/Lesion type: [place] artery [place] vs. transplanted heart: [place] heart Associated angina: without angina Qualified Code(s): I25.10 - Atherosclerotic heart disease of [place] coronary artery without angina pectoris (2) Hypertension Status: Chronic Qualifiers: Hypertension type: essential hypertension Qualified Code(s): I10 - Essential (primary) hypertension (3) Diabetes Status: Chronic Qualifiers: Diabetes mellitus type: type 2 Diabetes mellitus unix administrator insulin use: unspecified usp insulin use status Diabetes mellitus complication status : without complication Qualified Code(s): E11.9 - Type 2 diabetes mellitus without complications (4) Acute exacerbation of chronic obstructive airways disease Status: Suspected (5) Chronic respiratory failure with hypoxia Status: Acute (6) CHF exacerbation Status: Acute Qualifiers: Heart failure type: unspecified Qualified Code(s): I50.9 - Heart failure, unspecified - Time Spent With Patient Total time spent is greater than 50% in coordination of care (as documented) at patient's floor/unit and/or counseling patient: - Constitutional Vitals: Temp Pulse Resp BP Pulse Ox 97.9 F 63 16 109/52 99 08/12/17 07:13 08/12/17 07:13 08/12/17 11:08 08/12/17 07:13 08/12/17 11:08 Internal Medicine: Result - Labs CBC & Chem 7: 08/11/17 06:05 08/11/17 06:05 - Attending Attestation I performed an independent interview and examine this patient. I agree with the findings, assessment, and plan of Dr. Luna internal medicine resident. We discussed the case together. Patient is improved and appears to be compensated from a CHF perspective. Stable for discharge. Please see yesterday 's discharge summary for full details. Patient will need close follow-up. CHF discharge instructions. Exam: NAD, AAOx3 Skin warm and dry Lungs - dimin bs bases Ht rrr Ext tr edema
== END 2017-08-12 11:48 | disposition home or self-care (01) | DRG 190 ==
LOC: 2NENU
PROVIDERS: ADMIT Internal Medicine; ATTEND Internal Medicine